=== PATIENT | female | born 1970 | race Caucasian/White ===

== ENCOUNTER 2021-12-23 20:34 | Observation (INO) | payer OTHER ==
[2021-12-23] MEDS ORDERED: Sodium Chloride 0.9% 1000 ML 1,000 ML ONE (20:51)
[2021-12-23] MEDS ORDERED: Adenocard IV 6 MG/2 ML IV ONE ×4 (20:51→21:05)
[2021-12-23] MEDS ORDERED: Zofran 4 MG/2 ML VIAL ONE (20:51)
[2021-12-23] MEDS ORDERED: CARDIZEM DRIP 100 MG/100 ML D5W 100 ML IV ONE (21:02)
[2021-12-23] MEDS ORDERED: BABY ASPIRIN 81 MG CHEW PO ONE (21:03)
[2021-12-23] MEDS ORDERED: Cardizem IV 50 MG/10 ML IV ONE ×2 (21:03→21:04)
[2021-12-23] MEDS ORDERED: CARDIZEM DRIP 100 MG/100 ML D5W 100 ML IV PRN (21:04)
--- NOTE | 2021-12-23 21:09 | ERPHSYRPT ---
- History of Present Illness Time Seen by Provider: 12/23/21 20:53 Historian: patient Exam Limitations: no limitations Patient Subjective Stated Complaint: pt to ER today with complaints of chest pain and palpitations. pt states " i think my heart is in afibb." Triage Nursing Assessment: pt to ER with complaints of chest pain, palpitations x 3 days. pt states she has hx of afib. pt states she seen her fmd and was put on zithromax and this started right after that. pt states she feels lightheaded. pt has been sob and weak. pt states she had a cardioversion done 2 years ago. Physician History: 51 years old female with history of atrial fibrillation on Eliquis, hypertension, chronic back pain, tobacco abuse, COPD presented in the ER with chief complaint of off-and-on palpitation and chest discomfort for last 3 days. Patient reports she noticed this afternoon worsening of palpitations and prior to arrival started to have sweating with generalized weakness fatigue and tiredness. Complaining of dull aching central chest discomfort with racing of heart and mild increased shortness of breath than usual. Patient does have shortness of breath at her baseline. No fever or chills reported. Patient reports symptoms started after she was prescribed Zithromax for bronchitis. Timing/Duration: day(s) (3), intermittent, gradual onset, worse Activities at Onset: activity Quality: aching Location: central Chest Pain Radiation: no radiation Severity of Pain-Max: moderate Severity of Pain-Current: mild Modifying Factors: Worsens With: exertion Associated Symptoms: palpitations, shortness of breath, fatigue, dizziness Nitro Today/Relief: no nitro taken today Aspirin Treatment Today: no aspirin today Allergies/Adverse Reactions: morphine Allergy (Verified 12/23/21 23:31) Home Medications: Albuterol Sulfate [Proair Respiclick] 90 mcg IH DAILY 12/23/21 [History] Apixaban [Eliquis 5 mg Tablet] 5 mg PO BID 12/23/21 [History] Atorvastatin Calcium 40 mg PO QHS 12/23/21 [History] Buprenorphine HCl/Naloxone HCl [Suboxone 8 mg-2 mg Sl Film] 1 tablet PO BID 12/23/21 [History] Clopidogrel Bisulfate [Clopidogrel] 75 mg PO DAILY 12/23/21 [History] Doxycycline Hyclate 100 mg PO BID 12/23/21 [History] Gabapentin 100 mg PO TID 12/23/21 [History] Losartan Potassium [Cozaar] 25 mg PO DAILY 12/23/21 [History] Metoprolol Tartrate 50 mg [Lopressor 50 MG] 50 mg PO BID 12/23/21 [History] Pregabalin [Lyrica 100Mg] 100 mg PO BID 12/23/21 [History] Progesterone, Micronized [Progesterone] 100 mg PO QHS 12/23/21 [History] Quetiapine Fumarate [Seroquel] 25 mg PO QHS 12/24/21 [History] Trazodone HCl 50 mg [Desyrel 50 mg] 50 mg PO QHS 12/24/21 [History] Hx Tetanus, Diphtheria Vaccination/Date Given: Yes Hx Influenza Vaccination/Date Given: No Hx Pneumococcal Vaccination/Date Given: No Immunizations Up to Date: Yes Travel Risk - International Travel Have you traveled outside of the country in past 3 weeks: No - Coronavirus Screening Are you exhibiting any of the following symptoms?: No Close contact with a COVID-19 positive Pt in past 14-21 Days: No - Vaccine Status Have you recieved a Covid-19 vaccination: Yes 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 - Vaccination Dates Date of 2cond Vaccination (if applicable): unk Dates if Unknown: unk - Review of Systems Constitutional: Fatigue Eyes: No Symptoms Ears, Nose, & Throat: No Symptoms Respiratory: Dyspnea, Wheezing Cardiac: Chest Pain, Palpitations Abdominal/Gastrointestinal: No Symptoms Genitourinary Symptoms: No Symptoms Musculoskeletal: No Symptoms Skin: No Symptoms Neurological: No Symptoms Psychological: No Symptoms Endocrine: No Symptoms Hematologic/Lymphatic: No Symptoms Immunological/Allergic: No Symptoms - Past Medical History Pertinent Past Medical History: Yes Neurological History: No Pertinent History ENT History: No Pertinent History Cardiac History: Congestive Heart Failure, High Cholesterol, Hypertension Respiratory History: Bronchitis, COPD Endocrine Medical History: No Pertinent History Musculoskeletal History: No Pertinent History GI Medical History: Other History: No Pertinent History Psycho-Social History: No Pertinent History Female Reproductive Disorders: No Pertinent History Other Medical History: celiac disease - Past Surgical History Past Surgical History: Yes Neuro Surgical History: No Pertinent History Cardiac: Cardiac Catheterization, Vascular Surgery Respiratory: No Pertinent History Gastrointestinal: Cholecystectomy Genitourinary: No Pertinent History Musculoskeletal: No Pertinent History Female Surgical History: No Pertinent History - Social History Smoking Status: Current every day smoker How long have you smoked: 35 Exposure to second hand smoke: Yes Drug Use: none - Nursing Vital Signs Nursing Vital Signs: Initial Vital Signs Temperature 98.2 F 12/23/21 20:38 Pulse Rate 188 H 12/23/21 20:38 Respiratory Rate 22 12/23/21 20:38 O2 Sat by Pulse Oximetry 94 L 12/23/21 20:38 Pain Scale Pain Intensity 0 - Physical Exam General Appearance: no apparent distress, alert Eye Exam: PERRL/EOMI Ears, Nose, Throat Exam: normal ENT inspection, TMs normal, pharynx normal, moist mucous membranes Neck Exam: normal inspection, non-tender, supple, full range of motion Respiratory Exam: normal breath sounds, lungs clear Cardiovascular Exam: normal heart sounds, tachycardia Gastrointestinal/Abdomen Exam: soft, normal bowel sounds, No tenderness Back Exam: normal inspection, normal range of motion Extremity Exam: normal inspection, normal range of motion, pelvis stable Neurologic Exam: alert, oriented x 3, cooperative, address change clerk II-XII nml as tested Skin Exam: normal color SpO2 Interpretation: normal SpO2: 94 O2 Delivery: Room Air Ordered Tests: Active Orders 24 hr Category Date Time Status Bedrest ROUTINE Activity 12/23/21 23:26 Active Up With Assistance ROUTINE Activity 12/23/21 23:26 Active [employer] Worker STAT Care 12/23/21 21:03 Completed Code Status Order ROUTINE Care 12/23/21 23:26 Active EKG-ER Only STAT Care 12/23/21 21:03 Completed Fall Protocol Q1H Care 12/23/21 23:26 Active IV Care Q6H Care 12/23/21 23:26 Active IV Insertion STAT Care 12/23/21 21:03 Completed Oxygen-ED Only Nasal Cannula 2 lpm Care 12/23/21 21:[address] in Observation ROUTINE Care 12/23/21 23:26 Active Mimi Escobedo ROUTINE Care 12/23/21 23:26 Active Weight,Daily 0600 Care 12/23/21 23:26 Active Heart-Healthy Diet Diet 12/23/21 Breakfast Active CHEST 1 VIEW (PORTABLE) Stat Exams 12/23/21 21:03 Taken CBC W DIFF AM.LAB Lab 12/24/21 04:00 Ordered CBC W DIFF Stat Lab 12/23/21 21:22 Completed CMP AM.LAB Lab 12/24/21 04:00 Ordered CMP Stat Lab 12/23/21 21:22 Completed MAG [MAGNESIUM] Stat Lab 12/23/21 22:00 Completed NT PRO BNP Stat Lab 12/23/21 21:22 Completed TROPONIN Q4H Lab 12/23/21 21:22 Completed Urine Triage Profile Stat Lab 12/23/21 21:03 Ordered Transfer Order Routine Transfer 12/23/21 Completed Medication Summary Generic Name Dose Route Start Last Admin Trade Name Alycia PRN Reason Stop Dose Admin Acetaminophen 650 mg 12/23/21 23:26 Acetaminophen 325 Mg Tablet PO 01/22/22 23:25 Q4H PRN PRN PAIN AND/OR FEVER Albuterol/Ipratropium 3 ml 12/24/21 01:00 Ipratropium/Albuterol Sulfate 3 Ml Ampul.Neb IH 01/23/22 00:59 Q6HRT [place] Ondansetron HCl 4 mg 12/23/21 23:26 Ondansetron Hcl 4 Mg/2 Ml Vial IV 01/22/22 23:25 Q6H PRN PRN NAUSEA/VOMITING Pantoprazole Sodium 40 mg 12/24/21 10:00 Pantoprazole 40 Mg Vial IV 01/23/22 09:59 Q24H10 [place] Discontinued Medications Generic Name Dose Route Start Last Admin Trade Name Alycia PRN Reason Stop Dose Admin Adenosine Confirm 12/23/21 20:51 Adenosine 6 Mg/2 Ml Vial Administered 12/23/21 20:52 Dose 6 mg IV .STK-MED ONE Adenosine Confirm 12/23/21 20:59 Adenosine 6 Mg/2 Ml Vial Administered 12/23/21 21:00 Dose 12 mg IV .STK-MED ONE Adenosine 6 mg 12/23/21 21:05 12/23/21 20:58 Adenosine 6 Mg/2 Ml Vial IV 12/23/21 21:06 6 mg STAT ONE Administration Adenosine 12 mg 12/23/21 21:05 12/23/21 21:01 Adenosine 6 Mg/2 Ml Vial IV 12/23/21 21:06 12 mg STAT ONE Administration Aspirin 324 mg 12/23/21 21:03 12/23/21 21:19 Aspirin 81 Mg Tab.Chew PO 12/23/21 21:04 324 mg STAT ONE Administration Diltiazem HCl Confirm 12/23/21 21:03 Diltiazem Hcl Iv 5 Mg/Ml Vial Administered 12/23/21 21:04 Dose 50 mg IV .STK-MED ONE Diltiazem HCl 20 mg 12/23/21 21:04 12/23/21 21:09 Diltiazem Hcl Iv 5 Mg/Ml Vial IV 12/23/21 21:05 20 mg STAT ONE Administration Sodium Chloride Confirm 12/23/21 20:51 Sodium Chloride 0.9% 1000 Ml Administered 12/23/21 20:52 Dose 1,000 mls @ ud .ROUTE .STK-MED ONE Diltiazem HCl Confirm 12/23/21 21:02 Cardizem Drip 100 Mg/100 Ml D5w Administered 12/23/21 21:03 Dose 100 mls @ ud IV .STK-MED ONE Diltiazem HCl 100 mls @ 5 mls/hr 12/23/21 21:04 12/23/21 21:09 Cardizem Drip 100 Mg/100 Ml D5w IV 01/22/22 21:03 5 mg/hr .Q20H PRN 5 mls/hr HEART RATE/ A-FIB Administration Protocol 5 MG/HR Ondansetron HCl Confirm 12/23/21 20:51 Ondansetron Hcl 4 Mg/2 Ml Vial Administered 12/23/21 20:52 Dose 4 mg .ROUTE .STK-MED ONE Ondansetron HCl 4 mg 12/23/21 21:27 12/23/21 20:55 Ondansetron Hcl 4 Mg/2 Ml Vial IV 12/23/21 21:28 4 mg STAT ONE Administration Lab/Rad Data: Laboratory Result Diagrams 12/23/21 21:22 12/23/21 21:22 Laboratory Results 12/23/21 12/23/21 12/23/21 Range/Units 22:12 22:00 21:22 WBC (4.0-10.5) x10^3/uL RBC (4.1-5.4) x10^6/uL Hgb (12.0-16.0) g/dL Hct (35-47) % MCV (78-100) fL MCH (26-32) pg MCHC (32-36) g/dL RDW (11.5-14.0) % Plt Count (150-450) x10^3/uL MPV (7.5-11.0) fL Gran % (36.0-66.0) % Immature Gran % (Auto) (0.00-0.4) % Nucleat RBC Rel Count (0.00-0.1) % Eos # (Auto) (0-0.5) x10^3/uL Immature Gran # (Auto) (0.00-0.03) x10^3u/L Absolute Lymphs (auto) (1.0-4.6) x10^3/uL Absolute Monos (auto) (0.0-1.3) x10^3/uL Absolute Nucleated RBC (0.00-0.01) x10^3u/L Lymphocytes % (24.0-44.0) % Monocytes % (0.0-12.0) % Eosinophils % (0.00-5.0) % Basophils % (0.0-0.4) % Absolute Granulocytes (1.4-6.9) x10^3/uL Basophils # (0-0.4) x10^3/uL Sodium (137-145) mmol/L Potassium (3.5-5.1) mmol/L Chloride (98-107) mmol/L Carbon Dioxide (22-30) mmol/L Anion Gap (5-15) MEQ/L BUN (7-17) mg/dL Creatinine (0.52-1.04) mg/dL Estimated GFR ML/MIN Glucose (74-106) mg/dL Calcium (8.4-10.2) mg/dL Magnesium 1.7 (1.6-2.3) mg/dL Total Bilirubin (0.2-1.3) mg/dL AST (14-36) U/L ALT (0-35) U/L Alkaline Phosphatase (38-126) U/L Troponin I < 0.012 (0.000-0.034) ng/mL NT-Pro-B Natriuret Pep (0-900) pg/mL Serum Total Protein (6.3-8.2) g/dL Albumin (3.5-5.0) g/dL Influenza Type A Ag NEGATIVE (NEGATIVE) Influenza Type B Ag NEGATIVE (NEGATIVE) RSV (PCR) NEGATIVE (Negative) SARS-CoV-2 (PCR) NEGATIVE (NEGATIVE) 12/23/21 12/23/21 Range/Units 21:22 21:22 WBC 6.5 (4.0-10.5) x10^3/uL RBC 5.47 H (4.1-5.4) x10^6/uL Hgb 15.6 (12.0-16.0) g/dL Hct 49.8 H (35-47) % MCV 91.0 (78-100) fL MCH 28.5 (26-32) pg MCHC 31.3 L (32-36) g/dL RDW 15.0 H (11.5-14.0) % Plt Count 191 (150-450) x10^3/uL MPV 10.6 (7.5-11.0) fL Gran % 55.7 (36.0-66.0) % Immature Gran % (Auto) 0.2 (0.00-0.4) % Nucleat RBC Rel Count 0.0 (0.00-0.1) % Eos # (Auto) 0.11 (0-0.5) x10^3/uL Immature Gran # (Auto) 0.01 (0.00-0.03) x10^3u/L Absolute Lymphs (auto) 2.20 (1.0-4.6) x10^3/uL Absolute Monos (auto) 0.51 (0.0-1.3) x10^3/uL Absolute Nucleated RBC 0.00 (0.00-0.01) x10^3u/L Lymphocytes % 33.9 (24.0-44.0) % Monocytes % 7.9 (0.0-12.0) % Eosinophils % 1.7 (0.00-5.0) % Basophils % 0.6 (0.0-0.4) % Absolute Granulocytes 3.62 (1.4-6.9) x10^3/uL Basophils # 0.04 (0-0.4) x10^3/uL Sodium 139 (137-145) mmol/L Potassium 3.7 (3.5-5.1) mmol/L Chloride 106 (98-107) mmol/L Carbon Dioxide 26 (22-30) mmol/L Anion Gap 11.6 (5-15) MEQ/L BUN 16 (7-17) mg/dL Creatinine 1.00 (0.52-1.04) mg/dL Estimated GFR > 60.0 ML/MIN Glucose 142 H (74-106) mg/dL Calcium 8.9 (8.4-10.2) mg/dL Magnesium (1.6-2.3) mg/dL Total Bilirubin 0.60 (0.2-1.3) mg/dL AST 77 H (14-36) U/L ALT 39 H (0-35) U/L Alkaline Phosphatase 119 (38-126) U/L Troponin I (0.000-0.034) ng/mL NT-Pro-B Natriuret Pep 2570 H (0-900) pg/mL Serum Total Protein 7.9 (6.3-8.2) g/dL Albumin 3.7 (3.5-5.0) g/dL Influenza Type A Ag (NEGATIVE) Influenza Type B Ag (NEGATIVE) RSV (PCR) (Negative) SARS-CoV-2 (PCR) (NEGATIVE) - Progress Progress: improved Air Movement: fair, good Progress Note: 12/23/21 22:17 31-year-old is evaluated for palpitations. Patient was in SVT. She is given adenosine 6 followed by 12 with no change in rate and rhythm at all. Started on Cardizem. After giving bolus of Cardizem she converted to normal sinus rhythm. Chest x-ray no acute cardiopulmonary findings reviewed by me, official report is pending. Negative initial troponins. Discussed with Dr. Covarrubias and patient is being admitted for observation. Blood Culture(s) Obtained: No Antibiotics given: No Discussed with : Kortney Counseled pt/family regarding: lab results, diagnosis, need for follow-up, rad results, smoking cessation - Departure Departure Disposition: Observation Clinical Impression: Paroxysmal SVT (supraventricular tachycardia) Condition: Stable Critical Care Time: Yes Critical Care Time(excluding separately billable procedures): Critical 30-74 mins
[2021-12-23 21:24] LABS: Absolute Neutrophil Ct (ANC) 3.62 x10^3/uL (1.4-6.9); Basophil (Absolute #) 0.04 x10^3/uL (0-0.4); Eosinophil % 1.7 % (0.00-5.0); Eosinophil (Absolute #) 0.11 x10^3/uL (0-0.5); Hematocrit 49.8 % (35-47); Hemoglobin 15.6 g/dL (12.0-16.0); Lymphocytes % 33.9 % (24.0-44.0); Mean Corpuscular Hemoglobin 28.5 pg (26-32); Mean Corpuscular Hgb Concent. 31.3 g/dL (32-36); Mean Platelet Volume 10.6 fL (7.5-11.0); Monocyte (Absolute #) 0.51 x10^3/uL (0.0-1.3); Monocytes % 7.9 % (0.0-12.0); Neutrophil % 55.7 % (36.0-66.0); Platelet Count 191 x10^3/uL (150-450); Red Blood Count 5.47 x10^6/uL (4.1-5.4); White Blood Count 6.5 x10^3/uL (4.0-10.5)
[2021-12-23] MEDS ORDERED: Zofran 4 MG/2 ML VIAL IV ONE (21:27)
[2021-12-23 21:45] LABS: ALBUMIN 3.7 g/dL (3.5-5.0); ALKALINE PHOSPHATASE 119 U/L (38-126); ANION GAP 11.6 MEQ/L (5-15); BLOOD UREA NITROGEN 16 mg/dL (7-17); CHLORIDE 106 mmol/L (98-107); Calcium 8.9 mg/dL (8.4-10.2); Carbon Dioxide 26 mmol/L (22-30); EST GLOMERULAR FILTRATION RATE > 60.0 ML/MIN; Glucose 142 mg/dL (74-106); NT PRO BNP 2570 pg/mL (0-900); Potassium 3.7 mmol/L (3.5-5.1); SGOT/AST 77 U/L (14-36); SGPT/ALT 39 U/L (0-35); SODIUM 139 mmol/L (137-145); Total Protein 7.9 g/dL (6.3-8.2)
[2021-12-23 22:52] LABS: INFLUENZA A NEGATIVE (NEGATIVE); INFLUENZA B NEGATIVE (NEGATIVE); RESPIRATORY SYNCTIAL VIRUS NEGATIVE (Negative); SARS-CoV-2 Xpert Express NEGATIVE (NEGATIVE)
[2021-12-23] MEDS ORDERED: Zofran 4 MG/2 ML VIAL IV PRN (23:26)
[2021-12-23] MEDS ORDERED: TYLENOL 325 MG PO PRN (23:26)
[2021-12-24] MEDS ORDERED: ZOCOR 20MG PO SCH (00:17)
[2021-12-24] MEDS ORDERED: DESYREL 50 MG PO SCH (00:21)
[2021-12-24] MEDS ORDERED: Seroquel 25 MG PO SCH (00:21)
[2021-12-24] MEDS: VENTOLIN COMMON CANISTER IH SCH ×3 (00:25→12:45)
[2021-12-24] MEDS ORDERED: Nicoderm CQ 21 MG TOP SCH (00:30)
[2021-12-24] MEDS: ELIQUIS 2.5 MG TABLET PO SCH ×2 (00:49→09:22)
[2021-12-24] MEDS: Neurontin PO SCH ×2 (00:50→09:22)
[2021-12-24] MEDS: Lopressor 50 MG PO SCH ×2 (00:50→09:22)
[2021-12-24] MEDS: LYRICA 100MG PO SCH ×2 (00:50→09:22)
[2021-12-24] MEDS: Vibramycin 100 MG PO SCH ×2 (00:50→09:21)
[2021-12-24] MEDS ORDERED: DUONEB 0.5-3 MG/3 ml Neb IH SCH (01:00)
[2021-12-24 02:00] LABS: Amphetamine,Urine NEGATIVE (NEGATIVE); Barbiturate,Urine NEGATIVE (NEGATIVE); Benzodiazepine,Urine NEGATIVE (NEGATIVE); Methadone,Urine NEGATIVE (NEGATIVE); Opiate,Urine NEGATIVE (NEGATIVE); PCP,Urine NEGATIVE (NEGATIVE); THC,Urine NEGATIVE (NEGATIVE)
[2021-12-24 04:56] LABS: Absolute Neutrophil Ct (ANC) 3.94 x10^3/uL (1.4-6.9); Basophil (Absolute #) 0.03 x10^3/uL (0-0.4); Eosinophil % 1.5 % (0.00-5.0); Eosinophil (Absolute #) 0.09 x10^3/uL (0-0.5); Hematocrit 41.8 % (35-47); Hemoglobin 13.2 g/dL (12.0-16.0); Lymphocyte (Absolute #) 1.42 x10^3/uL (1.0-4.6); Lymphocytes % 24.2 % (24.0-44.0); Mean Cell Volume 89.5 fL (78-100); Mean Corpuscular Hemoglobin 28.3 pg (26-32); Mean Corpuscular Hgb Concent. 31.6 g/dL (32-36); Mean Platelet Volume 10.9 fL (7.5-11.0); Monocyte (Absolute #) 0.38 x10^3/uL (0.0-1.3); Monocytes % 6.5 % (0.0-12.0); Neutrophil % 67.1 % (36.0-66.0); Platelet Count 140 x10^3/uL (150-450); Red Blood Count 4.67 x10^6/uL (4.1-5.4); Red Cell Distribution Width 15.4 % (11.5-14.0); White Blood Count 5.9 x10^3/uL (4.0-10.5)
[2021-12-24 05:30] LABS: ALBUMIN 2.9 g/dL (3.5-5.0); ALKALINE PHOSPHATASE 91 U/L (38-126); ANION GAP 9.3 MEQ/L (5-15); BLOOD UREA NITROGEN 17 mg/dL (7-17); CHLORIDE 108 mmol/L (98-107); Calcium 8.2 mg/dL (8.4-10.2); Carbon Dioxide 23 mmol/L (22-30); Creatinine 1 0.76 mg/dL (0.52-1.04); EST GLOMERULAR FILTRATION RATE > 60.0 ML/MIN; Glucose 94 mg/dL (74-106); Potassium 4.2 mmol/L (3.5-5.1); SGOT/AST 53 U/L (14-36); SGPT/ALT 41 U/L (0-35); SODIUM 136 mmol/L (137-145); Total Protein 6.4 g/dL (6.3-8.2)
[2021-12-24 07:00] LABS: Slide Review 1 YES
[2021-12-24] MEDS ORDERED: MEDICATION INTERVENTION MC SCH ×2 (07:00)
--- NOTE | 2021-12-24 08:39 | XRAY ---
Indication: Palpitations. Comparison: December 18, 2021 Portable apical lordotic chest remains hyperinflated and clear. Heart not enlarged for apical lordotic projection. No new/acute findings.
[2021-12-24] MEDS ORDERED: NON-FORMULARY ITEM (Buprenorphine Hcl/Naloxone Hcl [Suboxone 8 Mg-2 Mg Sl Film] 1 EACH Fil PO SCH (10:00)
[2021-12-24] MEDS ORDERED: PROTONIX 40 MG IV IV SCH (10:00)
[2021-12-24 11:53] VITALS: BP 123/71; O2SAT 92
[2021-12-24 12:51] VITALS: PULSE 63
--- NOTE | 2021-12-24 13:24 | PCM.SSS ---
History of Present Illness - Chief Complaint Chief Complaint: SVT History of Present Illness: is a 51 year old female who presented to ER with chest pain. Medications & Allergies Home Medications: Home Medication List Albuterol Sulfate [Proair Respiclick] 90 mcg IH DAILY 12/23/21 [History Confirmed 12/23/21] Apixaban [Eliquis 5 mg Tablet] 5 mg PO BID 12/23/21 [History Confirmed 12/23/21] Atorvastatin Calcium 40 mg PO QHS 12/23/21 [History Confirmed 12/23/21] Buprenorphine HCl/Naloxone HCl [Suboxone 8 mg-2 mg Sl Film] 1 tablet PO BID 12/23/21 [History Confirmed 12/23/21] Clopidogrel Bisulfate [Clopidogrel] 75 mg PO DAILY 12/23/21 [History Confirmed 12/23/21] Doxycycline Hyclate 100 mg PO BID 12/23/21 [History Confirmed 12/23/21] Gabapentin 100 mg PO TID 12/23/21 [History Confirmed 12/23/21] Losartan Potassium [Cozaar] 25 mg PO DAILY 12/23/21 [History Confirmed 12/23/21] Metoprolol Tartrate 50 mg [Lopressor 50 MG] 50 mg PO BID 12/23/21 [History Confirmed 12/23/21] Pregabalin [Lyrica 100Mg] 100 mg PO BID 12/23/21 [History Confirmed 12/23/21] Progesterone, Micronized [Progesterone] 100 mg PO QHS 12/23/21 [History C onfirmed 12/23/21] Quetiapine Fumarate [Seroquel] 25 mg PO QHS 12/24/21 [History Confirmed 12/24/21] Trazodone HCl 50 mg [Desyrel 50 mg] 50 mg PO QHS 12/24/21 [History Confirmed 12/24/21] Allergies/Adverse Reactions: Allergies Allergy/AdvReac Type Severity Reaction Status Date / Time morphine Allergy Verified 12/23/21 23:31 - Past Medical History Past Medical History: Yes Neurological History: No Pertinent History ENT History: No Pertinent History Cardiac History: Congestive Heart Failure, High Cholesterol, Hypertension Respiratory History: Bronchitis, COPD Endocrine Medical History: No Pertinent History Musculoskelatal History: No Pertinent History GI Medical History: Other History: No Pertinent History Pyscho-Social History: No Pertinent History Reproductive Disorders: No Pertinent History Comment: celiac disease - Past Surgical History Past Surgical History: Yes Neuro Surgical History: No Pertinent History Cardiac History: Cardiac Catheterization, Vascular Surgery Respiratory Surgery: No Pertinent History GI Surgical History: Cholecystectomy Genitourinary Surgical Hx: No Pertinent History Musculskeletal Surgical Hx: No Pertinent History Female Surgical History: No Pertinent History Other Surgical History: cardiac ablation - Social History Smoking Status: Current every day smoker How long have you smoked: 35 Exposure to second hand smoke: Yes Alcohol: None Drug Use: none - Physical Exam Vital Signs: Vital Signs - 24 hr Temp Pulse Pulse Resp BP BP Pulse Ox 12/24/21 12:49 63 16 92 L 12/24/21 11:52 98.4 F 60 16 123/71 92 L 12/24/21 08:00 98.9 F 63 13 122/69 93 L 12/24/21 07:07 61 16 93 L 12/24/21 04:00 98.1 F 62 18 115/55 95 12/24/21 00:25 65 18 93 L 12/24/21 00:18 94 L 12/23/21 23:51 97.5 F 66 16 138/77 94 L 12/23/21 23:10 63 21 121/60 96 12/23/21 22:03 69 20 129/76 97 12/23/21 21:36 66 16 125/77 97 12/23/21 21:09 170 H 27 H 172/119 12/23/21 20:38 98.2 F 188 H 180 H 22 94 L Results - Labs Lab/Micro Results: Lab Results-Last 24 Hours 12/23/21 12/23/21 12/23/21 Range/Units 21:03 21:22 21:22 WBC 6.5 (4.0-10.5) x10^3/uL RBC 5.47 H (4.1-5.4) x10^6/uL Hgb 15.6 (12.0-16.0) g/dL Hct 49.8 H (35-47) % MCV 91.0 (78-100) fL MCH 28.5 (26-32) pg MCHC 31.3 L (32-36) g/dL RDW 15.0 H (11.5-14.0) % Plt Count 191 (150-450) x10^3/uL MPV 10.6 (7.5-11.0) fL Gran % 55.7 (36.0-66.0) % Immature Gran % (Auto) 0.2 (0.00-0.4) % Nucleat RBC Rel Count 0.0 (0.00-0.1) % Eos # (Auto) 0.11 (0-0.5) x10^3/uL Immature Gran # (Auto) 0.01 (0.00-0.03) x10^3u/L Absolute Lymphs (auto) 2.20 (1.0-4.6) x10^3/uL Absolute Monos (auto) 0.51 (0.0-1.3) x10^3/uL Absolute Nucleated RBC 0.00 (0.00-0.01) x10^3u/L Lymphocytes % 33.9 (24.0-44.0) % Monocytes % 7.9 (0.0-12.0) % Eosinophils % 1.7 (0.00-5.0) % Basophils % 0.6 (0.0-0.4) % Absolute Granulocytes 3.62 (1.4-6.9) x10^3/uL Basophils # 0.04 (0-0.4) x10^3/uL Sodium 139 (137-145) mmol/L Potassium 3.7 (3.5-5.1) mmol/L Chloride 106 (98-107) mmol/L Carbon Dioxide 26 (22-30) mmol/L Anion Gap 11.6 (5-15) MEQ/L BUN 16 (7-17) mg/dL Creatinine 1.00 (0.52-1.04) mg/dL Estimated GFR > 60.0 ML/MIN Glucose 142 H (74-106) mg/dL Calcium 8.9 (8.4-10.2) mg/dL Magnesium (1.6-2.3) mg/dL Total Bilirubin 0.60 (0.2-1.3) mg/dL AST 77 H (14-36) U/L ALT 39 H (0-35) U/L Alkaline Phosphatase 119 (38-126) U/L Troponin I (0.000-0.034) ng/mL NT-Pro-B Natriuret Pep 2570 H (0-900) pg/mL Serum Total Protein 7.9 (6.3-8.2) g/dL Albumin 3.7 (3.5-5.0) g/dL Urine Opiates Level NEGATIVE (NEGATIVE) Ur Methadone NEGATIVE (NEGATIVE) Urine Barbiturates NEGATIVE (NEGATIVE) Ur Phencyclidine (PCP) NEGATIVE (NEGATIVE) Urine Amphetamine NEGATIVE (NEGATIVE) U Benzodiazepine Level NEGATIVE (NEGATIVE) Urine Marijuana (THC) NEGATIVE (NEGATIVE) Influenza Type A Ag (NEGATIVE) Influenza Type B Ag (NEGATIVE) RSV (PCR) (Negative) SARS-CoV-2 (PCR) (NEGATIVE) Slides for Path Review 12/23/21 12/23/21 12/23/21 Range/Units 21:22 22:00 22:12 WBC (4.0-10.5) x10^3/uL RBC (4.1-5.4) x10^6/uL Hgb (12.0-16.0) g/dL Hct (35-47) % MCV (78-100) fL MCH (26-32) pg MCHC (32-36) g/dL RDW (11.5-14.0) % Plt Count (150-450) x10^3/uL MPV (7.5-11.0) fL Gran % (36.0-66.0) % Immature Gran % (Auto) (0.00-0.4) % Nucleat RBC Rel Count (0.00-0.1) % Eos # (Auto) (0-0.5) x10^3/uL Immature Gran # (Auto) (0.00-0.03) x10^3u/L Absolute Lymphs (auto) (1.0-4.6) x10^3/uL Absolute Monos (auto) (0.0-1.3) x10^3/uL Absolute Nucleated RBC (0.00-0.01) x10^3u/L Lymphocytes % (24.0-44.0) % Monocytes % (0.0-12.0) % Eosinophils % (0.00-5.0) % Basophils % (0.0-0.4) % Absolute Granulocytes (1.4-6.9) x10^3/uL Basophils # (0-0.4) x10^3/uL Sodium (137-145) mmol/L Potassium (3.5-5.1) mmol/L Chloride (98-107) mmol/L Carbon Dioxide (22-30) mmol/L Anion Gap (5-15) MEQ/L BUN (7-17) mg/dL Creatinine (0.52-1.04) mg/dL Estimated GFR ML/MIN Glucose (74-106) mg/dL Calcium (8.4-10.2) mg/dL Magnesium 1.7 (1.6-2.3) mg/dL Total Bilirubin (0.2-1.3) mg/dL AST (14-36) U/L ALT (0-35) U/L Alkaline Phosphatase (38-126) U/L Troponin I < 0.012 (0.000-0.034) ng/mL NT-Pro-B Natriuret Pep (0-900) pg/mL Serum Total Protein (6.3-8.2) g/dL Albumin (3.5-5.0) g/dL Urine Opiates Level (NEGATIVE) Ur Methadone (NEGATIVE) Urine Barbiturates (NEGATIVE) Ur Phencyclidine (PCP) (NEGATIVE) Urine Amphetamine (NEGATIVE) U Benzodiazepine Level (NEGATIVE) Urine Marijuana (THC) (NEGATIVE) Influenza Type A Ag NEGATIVE (NEGATIVE) Influenza Type B Ag NEGATIVE (NEGATIVE) RSV (PCR) NEGATIVE (Negative) SARS-CoV-2 (PCR) NEGATIVE (NEGATIVE) Slides for Path Review 12/24/21 12/24/21 Range/Units 04:20 04:20 WBC 5.9 (4.0-10.5) x10^3/uL RBC 4.67 (4.1-5.4) x10^6/uL Hgb 13.2 (12.0-16.0) g/dL Hct 41.8 (35-47) % MCV 89.5 (78-100) fL MCH 28.3 (26-32) pg MCHC 31.6 L (32-36) g/dL RDW 15.4 H (11.5-14.0) % Plt Count 140 L (150-450) x10^3/uL MPV 10.9 (7.5-11.0) fL Gran % 67.1 H (36.0-66.0) % Immature Gran % (Auto) 0.2 (0.00-0.4) % Nucleat RBC Rel Count 0.0 (0.00-0.1) % Eos # (Auto) 0.09 (0-0.5) x10^3/uL Immature Gran # (Auto) 0.01 (0.00-0.03) x10^3u/L Absolute Lymphs (auto) 1.42 (1.0-4.6) x10^3/uL Absolute Monos (auto) 0.38 (0.0-1.3) x10^3/uL Absolute Nucleated RBC 0.00 (0.00-0.01) x10^3u/L Lymphocytes % 24.2 (24.0-44.0) % Monocytes % 6.5 (0.0-12.0) % Eosinophils % 1.5 (0.00-5.0) % Basophils % 0.5 (0.0-0.4) % Absolute Granulocytes 3.94 (1.4-6.9) x10^3/uL Basophils # 0.03 (0-0.4) x10^3/uL Sodium 136 L (137-145) mmol/L Potassium 4.2 (3.5-5.1) mmol/L Chloride 108 H (98-107) mmol/L Carbon Dioxide 23 (22-30) mmol/L Anion Gap 9.3 (5-15) MEQ/L BUN 17 (7-17) mg/dL Creatinine 0.76 (0.52-1.04) mg/dL Estimated GFR > 60.0 ML/MIN Glucose 94 (74-106) mg/dL Calcium 8.2 L (8.4-10.2) mg/dL Magnesium (1.6-2.3) mg/dL Total Bilirubin 0.60 (0.2-1.3) mg/dL AST 53 H (14-36) U/L ALT 41 H (0-35) U/L Alkaline Phosphatase 91 (38-126) U/L Troponin I (0.000-0.034) ng/mL NT-Pro-B Natriuret Pep (0-900) pg/mL Serum Total Protein 6.4 (6.3-8.2) g/dL Albumin 2.9 L (3.5-5.0) g/dL Urine Opiates Level (NEGATIVE) Ur Methadone (NEGATIVE) Urine Barbiturates (NEGATIVE) Ur Phencyclidine (PCP) (NEGATIVE) Urine Amphetamine (NEGATIVE) U Benzodiazepine Level (NEGATIVE) Urine Marijuana (THC) (NEGATIVE) Influenza Type A Ag (NEGATIVE) Influenza Type B Ag (NEGATIVE) RSV (PCR) (Negative) SARS-CoV-2 (PCR) (NEGATIVE) Slides for Path Review YES - Radiology Impressions Radiology Exams & Impressions: Radiology Procedures Category Date Time Status CHEST 1 VIEW (PORTABLE) Stat Exams 12/23/21 21:03 Completed ECHO W/2D AND DOPPLER [US] Routine Exams 12/24/21 Ordered - Other Procedures and Tests Respiratory Therapy 12/24/21 01:11 Respiratory Therapy Assessment DAILY Hospital Summary - Vitals & Intake/Output Vital Signs: Vital Signs Temperature 98.4 F 12/24/21 11:52 Pulse Rate 63 12/24/21 12:49 Respiratory Rate 16 12/24/21 12:49 Blood Pressure 123/71 12/24/21 11:52 O2 Sat by Pulse Oximetry 92 L 12/24/21 12:49 Intake & Output: Intake & Output 12/22/21 12/23/21 12/24/21 12/25/21 11:59 11:59 11:59 11:59 Intake Total 440 560 Balance 440 560 Weight 88 kg - Lab Result Diagrams: 12/24/21 04:20 12/24/21 04:20 Lab Results-Last 24 Hrs: Lab Results-Last 24 Hours 12/23/21 12/23/21 12/23/21 Range/Units 21:03 21:22 21:22 WBC 6.5 (4.0-10.5) x10^3/uL RBC 5.47 H (4.1-5.4) x10^6/uL Hgb 15.6 (12.0-16.0) g/dL Hct 49.8 H (35-47) % MCV 91.0 (78-100) fL MCH 28.5 (26-32) pg MCHC 31.3 L (32-36) g/dL RDW 15.0 H (11.5-14.0) % Plt Count 191 (150-450) x10^3/uL MPV 10.6 (7.5-11.0) fL Gran % 55.7 (36.0-66.0) % Immature Gran % (Auto) 0.2 (0.00-0.4) % Nucleat RBC Rel Count 0.0 (0.00-0.1) % Eos # (Auto) 0.11 (0-0.5) x10^3/uL Immature Gran # (Auto) 0.01 (0.00-0.03) x10^3u/L Absolute Lymphs (auto) 2.20 (1.0-4.6) x10^3/uL Absolute Monos (auto) 0.51 (0.0-1.3) x10^3/uL Absolute Nucleated RBC 0.00 (0.00-0.01) x10^3u/L Lymphocytes % 33.9 (24.0-44.0) % Monocytes % 7.9 (0.0-12.0) % Eosinophils % 1.7 (0.00-5.0) % Basophils % 0.6 (0.0-0.4) % Absolute Granulocytes 3.62 (1.4-6.9) x10^3/uL Basophils # 0.04 (0-0.4) x10^3/uL Sodium 139 (137-145) mmol/L Potassium 3.7 (3.5-5.1) mmol/L Chloride 106 (98-107) mmol/L Carbon Dioxide 26 (22-30) mmol/L Anion Gap 11.6 (5-15) MEQ/L BUN 16 (7-17) mg/dL Creatinine 1.00 (0.52-1.04) mg/dL Estimated GFR > 60.0 ML/MIN Glucose 142 H (74-106) mg/dL Calcium 8.9 (8.4-10.2) mg/dL Magnesium (1.6-2.3) mg/dL Total Bilirubin 0.60 (0.2-1.3) mg/dL AST 77 H (14-36) U/L ALT 39 H (0-35) U/L Alkaline Phosphatase 119 (38-126) U/L Troponin I (0.000-0.034) ng/mL NT-Pro-B Natriuret Pep 2570 H (0-900) pg/mL Serum Total Protein 7.9 (6.3-8.2) g/dL Albumin 3.7 (3.5-5.0) g/dL Urine Opiates Level NEGATIVE (NEGATIVE) Ur Methadone NEGATIVE (NEGATIVE) Urine Barbiturates NEGATIVE (NEGATIVE) Ur Phencyclidine (PCP) NEGATIVE (NEGATIVE) Urine Amphetamine NEGATIVE (NEGATIVE) U Benzodiazepine Level NEGATIVE (NEGATIVE) Urine Marijuana (THC) NEGATIVE (NEGATIVE) Influenza Type A Ag (NEGATIVE) Influenza Type B Ag (NEGATIVE) RSV (PCR) (Negative) SARS-CoV-2 (PCR) (NEGATIVE) Slides for Path Review 12/23/21 12/23/21 12/23/21 Range/Units 21:22 22:00 22:12 WBC (4.0-10.5) x10^3/uL RBC (4.1-5.4) x10^6/uL Hgb (12.0-16.0) g/dL Hct (35-47) % MCV (78-100) fL MCH (26-32) pg MCHC (32-36) g/dL RDW (11.5-14.0) % Plt Count (150-450) x10^3/uL MPV (7.5-11.0) fL Gran % (36.0-66.0) % Immature Gran % (Auto) (0.00-0.4) % Nucleat RBC Rel Count (0.00-0.1) % Eos # (Auto) (0-0.5) x10^3/uL Immature Gran # (Auto) (0.00-0.03) x10^3u/L Absolute Lymphs (auto) (1.0-4.6) x10^3/uL Absolute Monos (auto) (0.0-1.3) x10^3/uL Absolute Nucleated RBC (0.00-0.01) x10^3u/L Lymphocytes % (24.0-44.0) % Monocytes % (0.0-12.0) % Eosinophils % (0.00-5.0) % Basophils % (0.0-0.4) % Absolute Granulocytes (1.4-6.9) x10^3/uL Basophils # (0-0.4) x10^3/uL Sodium (137-145) mmol/L Potassium (3.5-5.1) mmol/L Chloride (98-107) mmol/L Carbon Dioxide (22-30) mmol/L Anion Gap (5-15) MEQ/L BUN (7-17) mg/dL Creatinine (0.52-1.04) mg/dL Estimated GFR ML/MIN Glucose (74-106) mg/dL Calcium (8.4-10.2) mg/dL Magnesium 1.7 (1.6-2.3) mg/dL Total Bilirubin (0.2-1.3) mg/dL AST (14-36) U/L ALT (0-35) U/L Alkaline Phosphatase (38-126) U/L Troponin I < 0.012 (0.000-0.034) ng/mL NT-Pro-B Natriuret Pep (0-900) pg/mL Serum Total Protein (6.3-8.2) g/dL Albumin (3.5-5.0) g/dL Urine Opiates Level (NEGATIVE) Ur Methadone (NEGATIVE) Urine Barbiturates (NEGATIVE) Ur Phencyclidine (PCP) (NEGATIVE) Urine Amphetamine (NEGATIVE) U Benzodiazepine Level (NEGATIVE) Urine Marijuana (THC) (NEGATIVE) Influenza Type A Ag NEGATIVE (NEGATIVE) Influenza Type B Ag NEGATIVE (NEGATIVE) RSV (PCR) NEGATIVE (Negative) SARS-CoV-2 (PCR) NEGATIVE (NEGATIVE) Slides for Path Review 12/24/21 12/24/21 Range/Units 04:20 04:20 WBC 5.9 (4.0-10.5) x10^3/uL RBC 4.67 (4.1-5.4) x10^6/uL Hgb 13.2 (12.0-16.0) g/dL Hct 41.8 (35-47) % MCV 89.5 (78-100) fL MCH 28.3 (26-32) pg MCHC 31.6 L (32-36) g/dL RDW 15.4 H (11.5-14.0) % Plt Count 140 L (150-450) x10^3/uL MPV 10.9 (7.5-11.0) fL Gran % 67.1 H (36.0-66.0) % Immature Gran % (Auto) 0.2 (0.00-0.4) % Nucleat RBC Rel Count 0.0 (0.00-0.1) % Eos # (Auto) 0.09 (0-0.5) x10^3/uL Immature Gran # (Auto) 0.01 (0.00-0.03) x10^3u/L Absolute Lymphs (auto) 1.42 (1.0-4.6) x10^3/uL Absolute Monos (auto) 0.38 (0.0-1.3) x10^3/uL Absolute Nucleated RBC 0.00 (0.00-0.01) x10^3u/L Lymphocytes % 24.2 (24.0-44.0) % Monocytes % 6.5 (0.0-12.0) % Eosinophils % 1.5 (0.00-5.0) % Basophils % 0.5 (0.0-0.4) % Absolute Granulocytes 3.94 (1.4-6.9) x10^3/uL Basophils # 0.03 (0-0.4) x10^3/uL Sodium 136 L (137-145) mmol/L Potassium 4.2 (3.5-5.1) mmol/L Chloride 108 H (98-107) mmol/L Carbon Dioxide 23 (22-30) mmol/L Anion Gap 9.3 (5-15) MEQ/L BUN 17 (7-17) mg/dL Creatinine 0.76 (0.52-1.04) mg/dL Estimated GFR > 60.0 ML/MIN Glucose 94 (74-106) mg/dL Calcium 8.2 L (8.4-10.2) mg/dL Magnesium (1.6-2.3) mg/dL Total Bilirubin 0.60 (0.2-1.3) mg/dL AST 53 H (14-36) U/L ALT 41 H (0-35) U/L Alkaline Phosphatase 91 (38-126) U/L Troponin I (0.000-0.034) ng/mL NT-Pro-B Natriuret Pep (0-900) pg/mL Serum Total Protein 6.4 (6.3-8.2) g/dL Albumin 2.9 L (3.5-5.0) g/dL Urine Opiates Level (NEGATIVE) Ur Methadone (NEGATIVE) Urine Barbiturates (NEGATIVE) Ur Phencyclidine (PCP) (NEGATIVE) Urine Amphetamine (NEGATIVE) U Benzodiazepine Level (NEGATIVE) Urine Marijuana (THC) (NEGATIVE) Influenza Type A Ag (NEGATIVE) Influenza Type B Ag (NEGATIVE) RSV (PCR) (Negative) SARS-CoV-2 (PCR) (NEGATIVE) Slides for Path Review YES - Radiology Exams Ordered Rad Exams-Entire Visit: Radiology Procedures Category Date Time Status CHEST 1 VIEW (PORTABLE) Stat Exams 12/23/21 21:03 Completed ECHO W/2D AND DOPPLER [US] Routine Exams 12/24/21 Ordered - Procedures and Test Procedures and Tests throughout Hospitalization: Therapy Orders & Screens 12/24/21 01:00 RT Screen per Nursing Assess ONCE Comment: Protocol Order Physician Instructions: Greater than 3 points order RT Admission Screen Reason For Exam: Triggered on Admission Diagnosis: SVT Diagnosis: SVT Pneumonia: No Home O2: Yes: 2L NC at HS Asthma: No CHF: Yes Home CPAP/BIPAP: No Home Nebs/MDI: Yes Total Points: 13 Smoking Cessation Education ONCE Comment: Diagnosis: SVT Smoking Status: Current every day smoker How long have you smoked: 33 years Have you smoked in the past 12 months: Yes Approximately how many cigarettes per day: 20 Do you dip or chew tobacco: No 12/24/21 01:11 Respiratory Therapy Assessment DAILY Comment: Diagnosis: SVT - Discharge Disposition: Home, Self-Care Condition: Stable Prescriptions: No Action Metoprolol Tartrate 50 mg [Lopressor 50 MG] 50 mg PO BID Clopidogrel Bisulfate [Clopidogrel] 75 mg PO DAILY Atorvastatin Calcium 40 mg PO QHS Losartan Potassium [Cozaar] 25 mg PO DAILY Pregabalin [Lyrica 100Mg] 100 mg PO BID Gabapentin 100 mg PO TID Albuterol Sulfate [Proair Respiclick] 90 mcg IH DAILY Progesterone, Micronized [Progesterone] 100 mg PO QHS Buprenorphine HCl/Naloxone HCl [Suboxone 8 mg-2 mg Sl Film] 1 tablet PO BID Apixaban [Eliquis 5 mg Tablet] 5 mg PO BID Doxycycline Hyclate 100 mg PO BID Trazodone HCl 50 mg [Desyrel 50 mg] 50 mg PO QHS Quetiapine Fumarate [Seroquel] 25 mg PO QHS Follow up with: ALLEY JACKSON DO [Primary Care Provider] -
--- NOTE | 2021-12-24 16:25 | PCM.DCORD ---
- Discharge Disposition: Home, Self-Care Condition: Stable Prescriptions: New Potassium Chloride [Klor-Con 10] 10 meq PO DAILY #10 tab Furosemide [Lasix] 20 mg PO DAILY #30 tablet Continue Metoprolol Tartrate 50 mg [Lopressor 50 MG] 50 mg PO BID Clopidogrel Bisulfate [Clopidogrel] 75 mg PO DAILY Atorvastatin Calcium 40 mg PO QHS Losartan Potassium [Cozaar] 25 mg PO DAILY Pregabalin [Lyrica 100Mg] 100 mg PO BID Gabapentin 100 mg PO TID Albuterol Sulfate [Proair Respiclick] 90 mcg IH DAILY Progesterone, Micronized [Progesterone] 100 mg PO QHS Buprenorphine HCl/Naloxone HCl [Suboxone 8 mg-2 mg Sl Film] 1 tablet PO BID Apixaban [Eliquis 5 mg Tablet] 5 mg PO BID Trazodone HCl 50 mg [Desyrel 50 mg] 50 mg PO QHS Quetiapine Fumarate [Seroquel] 25 mg PO QHS Discontinued Doxycycline Hyclate 100 mg PO BID Follow up with: ALLEY JACKSON DO [Primary Care Provider] -
[2021-12-24] MEDS ORDERED: NON-FORMULARY ITEM (Progesterone, Micronized [Progesterone] 100 MG Capsule) PO SCH (22:00)
--- NOTE | 2021-12-25 13:08 | ECHO ---
Transthoracic echocardiographic examination and color Doppler was done on 12/24/2021. INDICATION: Elevated BNP and chest pain. IMPRESSION: 1) NO REGIONAL WALL MOTION ABNORMALITY. ESTIMATED GLOBAL LEFT VENTRICULAR EJECTION FRACTION OF ABOUT 60 TO 65%. 2) MODERATE TO SEVERE MITRAL REGURGITATION. 3) MODERATE TRICUSPID REGURGITATION. RIGHT VENTRICULAR SYSTOLIC PRESSURE OF 75 MM OF MERCURY SUGGESTIVE OF MODERATE TO SEVERE PULMONARY HYPERTENSION. 4) TRACE AORTIC REGURGITATION. 5) TRACE PULMONARY INSUFFICIENCY. 6) LEFT VENTRICULAR HYPERTROPHY. 7) MILDLY DILATED RIGHT SIDE CHAMBERS. 8) LEFT VENTRICLE DIASTOLIC DYSFUNCTION. 9) MODERATELY DILATED LEFT ATRIUM. The left ventricle is visualized and demonstrated adequate motion of all the segments. Estimated global left ventricular ejection fraction between 60 to 65%. There is concentric left ventricular hypertrophy. There is concentric left ventricular hypertrophy. 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 Color flow study demonstrated moderate to severe mitral regurgitation. The left atrium is moderately dilated. The aortic valve is sclerotic but opens adequately. There is no significant gradient across left ventricular outflow tract. There is trace aortic regurgitation. The right side chambers are mildly dilated. There is moderate tricuspid regurgitation. The right ventricular systolic pressure of 75 mm of Mercury suggestive of moderate to severe pulmonary hypertension. There is also trace pulmonic insufficiency. Tissue Doppler study of the lateral mitral annulus is suggestive of left ventricle diastolic dysfunction.
== END 2021-12-24 16:48 | disposition home or self-care (01) ==
LOC: ED 20:34 → MED SURG 23:25
PROVIDERS: ADMIT Family Medicine; ATTEND Family Medicine
DX: I47.1 Supraventricular tachycardia (principal); R07.9 Chest pain, unspecified; I11.0 Hypertensive heart disease with heart failure; I50.9 Heart failure, unspecified; E78.00 Pure hypercholesterolemia, unspecified; Z79.01 Long term (current) use of anticoagulants; Z79.899 Other long term (current) drug therapy; Z20.828 Contact with and (suspected) exposure to other viral communicable diseases; Z72.0 Tobacco use
CPT/HCPCS: 0241U; 36000; 36415; 71045; 80053; 80307; 83880; 84484; 85025; 93005; 93041; 93268; 93306; 94640; 94760; 96374; 96375; 96376; 99285; 99291; G0378; 83735; J0153; J2405; A9270-GY

== ENCOUNTER 2023-09-30 05:54 | Emergency (ER) | payer OTHER ==
[2023-09-30] MEDS: DUONEB 0.5-3 MG/3 ml Neb IH ONE (06:00)
[2023-09-30] MEDS ORDERED: Cardizem IV 50 MG/10 ML IV ONE (06:08)
[2023-09-30] MEDS ORDERED: LOPRESSOR INJECTION IV ONE (06:08)
[2023-09-30] MEDS: Cardizem IV 50 MG/10 ML IV ONE (06:09)
[2023-09-30 06:12] VITALS: TEMP 98.4
[2023-09-30] MEDS ORDERED: Zofran 4 MG/2 ML VIAL ONE (06:16)
[2023-09-30] MEDS: LOPRESSOR INJECTION IV ONE (06:19)
[2023-09-30] MEDS: Zofran 4 MG/2 ML VIAL IV ONE (06:23)
[2023-09-30 06:36] LABS: A-aADO2 248; ABG HEMOGLOBIN 13.6; ABG POTASSIUM 3.7 (3.5-5.1); ARTERIAL BLD GAS O2 SATURATION 87.3 % (95-100); ARTERIAL BLOOD GAS BASE EXCESS 3.3 (-2.0-2.0); ARTERIAL BLOOD GAS FIO2 50 %; ARTERIAL BLOOD GAS PCO2 41 mmHg (35-45); ARTERIAL BLOOD GAS PO2 57 mmHg (75-100); ARTERIAL BLOOD GAS pH 7.44 (7.35-7.45); CARBOXYHEMOGLOBIN 1.6 % THgb (0.0-6.9); HCO3- 27.8 (22-28); HGB O2 SAT 85.5 g/dF (94-100); Methhemoglobin 0.6 % (1.4-1.5); paO2 pAO1 0.19
[2023-09-30 06:42] LABS: BASOPHIL % 0.4 % (0.0-0.4); Basophil (Absolute #) 0.05 x10^3/uL (0-0.4); Eosinophil % 1.2 % (0.00-5.0); Eosinophil (Absolute #) 0.14 x10^3/uL (0-0.5); Hematocrit 41.6 % (35-47); Hemoglobin 12.9 g/dL (12.0-16.0); IMMATURE GRAN # 0.05 x10^3u/L (0.00-0.03); IMMATURE GRAN % 0.4 % (0.00-0.4); Lymphocyte (Absolute #) 1.13 x10^3/uL (1.0-4.6); Lymphocytes % 9.7 % (24.0-44.0); Mean Cell Volume 85.2 fL (78-100); Mean Corpuscular Hemoglobin 26.4 pg (26-32); Mean Platelet Volume 10.6 fL (7.5-11.0); Monocyte (Absolute #) 0.67 x10^3/uL (0.0-1.3); Monocytes % 5.8 % (0.0-12.0); Neutrophil % 82.5 % (36.0-66.0); Platelet Count 211 x10^3/uL (150-450); Red Blood Count 4.88 x10^6/uL (4.1-5.4); Red Cell Distribution Width 16.2 % (11.5-14.0); White Blood Count 11.6 x10^3/uL (4.0-10.5)
--- NOTE | 2023-09-30 06:42 | ERPHSYRPT ---
- History of Present Illness Source: patient Exam Limitations: clinical condition Patient Subjective Stated Complaint: pt states she woke up th is morning and couldnt breathe. states she was short of breath some before going to bed. Triage Nursing Assessment: pt alert and oriented, answers questions with short replies. pt ambulates back to room with steady gait noted. occasional cough noted. crackles noted to bilat lung bases.breath sounds diminished bilat. skin warm and dry. pt yelling at times. Activities at Onset: none Severity of Dyspnea-Max: moderate Severity of Dyspnea-Current: moderate Possible Cause: occasional episodes Modifying Factors: Improves With: nothing Associated Symptoms: anxiety, heart racing, No chest pain/discomfort Hx Tetanus, Diphtheria Vaccination/Date Given: Yes Hx Influenza Vaccination/Date Given: No Hx Pneumococcal Vaccination/Date Given: No Immunizations Up to Date: Yes <SARA MALLOY - Last Filed: 09/30/23 06:36> <BEE LESLIE - Last Filed: 09/30/23 12:34> - History of Present Illness Time Seen by Provider: 09/30/23 05:55 Physician History: This is a morbidly obese 52-year-old white female patient of primary care physician Dr. 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 Patient has a history of mitral valve replacement approximately 6 months ago at [facility] in [place]. She began having shortness of breath last evening and when she woke up this morning the shortness of breath was worse. Patient arrives to the emergency department with a room air oxygen saturation level of 88%. She has a heart rate of 145 bpm and the rhythm is atrial fibrillation with RVR. Patient has a history of atrial fibrillation. Patient is on digoxin and metoprolol. Patient also has a history of gastroesophageal reflux disease, hypertension and hyperlipidemia. She has very little chest pain. Her primary complaint is shortness of breath. (SARA MALLOY) Allergies/Adverse Reactions: morphine Allergy (Verified 12/23/21 23:31) Home Medications: Albuterol Sulfate [Proair Respiclick] 2 puffs IH Q6H 12/23/21 [History] Atorvastatin Calcium 40 mg PO QHS 12/23/21 [History] Gabapentin 100 mg PO TID 12/23/21 [History] Metoprolol Tartrate 50 mg [Lopressor 50 MG] 50 mg PO BID 12/23/21 [History] Progesterone, Micronized [Progesterone] 100 mg PO QHS 12/23/21 [History] Quetiapine Fumarate [Seroquel] 25 mg PO BID 12/24/21 [History] Trazodone HCl 50 mg [Desyrel 50 mg] 50 mg PO QHS 12/24/21 [History] Buprenorphine HCl/Naloxone HCl [Buprenorphin-Naloxon 8-2 mg Sl] 1 each SL BID 03/24/23 [History] Losartan Potassium 100 mg PO DAILY 03/24/23 [History] Potassium Chloride [Klor-Con 10] 20 meq PO DAILY 03/24/23 [History] Pregabalin 150 mg PO BID 03/24/23 [History] Sertraline HCl 50 mg [Zoloft 50 mg Tablet] 50 mg PO DAILY 03/24/23 [History] Cholecalciferol (Vitamin D3) [Vitamin D] 1,000 unit PO DAILY 07/03/23 [History] Furosemide [Lasix] 20 mg PO DAILY 07/03/23 [History] Fluticasone/Umeclidin/Vilanter [Trelegy Ellipta 200-62.5-25] 1 each IH DAILY 07/30/23 [History] Digoxin 0.125 mg Tablet [Lanoxin 0.125MG TABLET] 0.125 mg PO DAILY 09/30/23 [History] Melatonin 5 mg PO HS 09/30/23 [History] Pantoprazole 20 mg [Protonix 20MG Tablet] 20 mg PO DAILY 09/30/23 [History] Travel Risk - International Travel Have you traveled outside of the country in past 3 weeks: No - Emerging Infectious Disease Are you exhibiting symptoms associated with any current EIDs: Yes Symptoms: Cough: New Onset <SARA MALLOY - Last Filed: 09/30/23 06:36> - Review of Systems Constitutional: No Symptoms Eyes: No Symptoms Ears, Nose, & Throat: No Symptoms Respiratory: Dyspnea Cardiac: Palpitations Abdominal/Gastrointestinal: Nausea Genitourinary Symptoms: No Symptoms Musculoskeletal: No Symptoms Skin: No Symptoms Neurological: No Symptoms Psychological: No Symptoms Endocrine: No Symptoms Hematologic/Lymphatic: No Symptoms Immunological/Allergic: No Symptoms All Other Systems: Reviewed and Negative <SARA MALLOY - Last Filed: 09/30/23 06:36> - Past Medical History Pertinent Past Medical History: Yes Neurological History: No Pertinent History ENT History: No Pertinent History Cardiac History: Congestive Heart Failure, High Cholesterol, Hypertension Respiratory History: Bronchitis, COPD Endocrine Medical History: No Pertinent History Musculoskeletal History: No Pertinent History GI Medical History: Other History: No Pertinent History Psycho-Social History: No Pertinent History Female Reproductive Disorders: No Pertinent History Other Medical History: celiac disease - Past Surgical History Past Surgical History: Yes Neuro Surgical History: No Pertinent History Cardiac: Cardiac Catheterization, Valve Replacement, Vascular Surgery Respiratory: No Pertinent History Gastrointestinal: Cholecystectomy Genitourinary: No Pertinent History Musculoskeletal: No Pertinent History Female Surgical History: No Pertinent History Other Surgical History: cardiac ablation, mitral valve replacement- mechanical - Social History Smoking Status: Current every day smoker How long have you smoked: 35 Exposure to second hand smoke: Yes Drug Use: none <SARA MALLOY - Last Filed: 09/30/23 06:36> - Physical Exam General Appearance: moderate distress, alert, anxiety, obese Eye Exam: PERRL/EOMI, eyes nml inspection Ears, Nose, Throat Exam: hearing grossly normal, normal ENT inspection, normal pharynx Neck Exam: normal inspection, non-tender, supple, full range of motion Respiratory Exam: normal breath sounds, lungs clear, respiratory distress, airway intact, No chest tenderness Cardiovascular/Chest Exam: tachycardia, irregular Abdominal/Gastrointestinal Exam: soft, normal bowel sounds, No tenderness Rectal Exam: not done Extremity Exam: non-tender, normal range of motion, pedal edema (Mild feet and ankle edema) Neurologic Exam: alert, oriented x 3, cooperative, 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 nml as tested Skin Exam: diaphoresis Lymphatic Exam: No adenopathy SpO2 Interpretation: hypoxic, ABG ordered, O2 applied SpO2: 93 O2 Delivery: Oxymask <SARA MALLOY - Last Filed: 09/30/23 06:36> - Nursing Vital Signs Nursing Vital Signs: Initial Vital Signs Temperature 98.4 F 09/30/23 05:55 Pulse Rate 131 H 09/30/23 05:55 Respiratory Rate 28 H 09/30/23 05:55 Blood Pressure 181/97 09/30/23 05:55 O2 Sat by Pulse Oximetry 87 L 09/30/23 05:55 Pain Scale Pain Intensity 0 - Course Nursing assessment & vital signs reviewed: Yes EKG Interpreted by Me: RATE (145), A-fib, Other (No evidence of acute ischemic changes. However there were mild depression ST segment diffusely) <SARA MALLOY - Last Filed: 09/30/23 06:36> Ordered Tests: Active Orders 24 hr Category Date Time Status EKG-ER Only STAT Care 09/30/23 06:04 Active IV Insertion STAT Care 09/30/23 06:04 Active Pulse Oximetry (ED) STAT Care 09/30/23 06:04 Active CHEST 1 VIEW (PORTABLE) Stat Exams 09/30/23 06:04 Completed ABG [ARTERIAL BLOOD GASES] Stat Lab 09/30/23 06:24 Completed BLOOD CULTURE Stat Lab 09/30/23 06:38 Received CBC W DIFF Stat Lab 09/30/23 06:04 Completed CMP Stat Lab 09/30/23 06:11 Completed Lactic Acid Stat Lab 09/30/23 06:22 Completed Lactic Acid Stat Lab 09/30/23 08:24 Completed MAGNESIUM Stat Lab 09/30/23 06:11 Completed NT PRO BNPII Stat Lab 09/30/23 06:11 Completed PROTIME WITH INR Stat Lab 09/30/23 06:11 Completed TROPONIN Q4H Lab 09/30/23 06:11 Completed TROPONIN Q4H Lab 09/30/23 10:10 Completed TROPONIN Q4H Lab 09/30/23 14:15 Ordered UA W/RFX UR CULTURE Stat Lab 09/30/23 08:43 Completed Respiratory Therapy Assessment UD RT 09/30/23 06:16 Completed Medication Summary Generic Name Dose Route Start Last Admin Trade Name Freq PRN Reason Stop Dose Admin Diltiazem HCl 100 mls @ 5 mls/hr 09/30/23 06:35 09/30/23 10:22 Cardizem Drip 100 Mg/100 Ml D5w IV 10/30/23 06:34 5 mg/hr .Q20H PRN 5 mls/hr HEART RATE/ A-FIB Titration Protocol 5 MG/HR Discontinued Medications Generic Name Dose Route Start Last Admin Trade Name Alycia PRN Reason Stop Dose Admin Acetaminophen 1,000 mg 09/30/23 08:30 09/30/23 08:36 Acetaminophen 500 Mg Tablet PO 09/30/23 08:31 1,000 mg STAT STA Administration Acetaminophen Confirm 09/30/23 08:32 Acetaminophen 500 Mg Tablet Administered 09/30/23 08:33 Dose 1,000 mg .ROUTE .STK-MED ONE Albuterol/Ipratropium 3 ml 09/30/23 06:17 09/30/23 06:00 Ipratropium/Albuterol Sulfate 3 Ml Ampul.Neb IH 09/30/23 06:18 3 ml STAT ONE Administration Diltiazem HCl 20 mg 09/30/23 06:05 09/30/23 06:09 Diltiazem Hcl Iv 5 Mg/Ml Vial IV 09/30/23 06:06 20 mg STAT ONE Administration Diltiazem HCl Confirm 09/30/23 06:08 Diltiazem Hcl Iv 5 Mg/Ml Vial Administered 09/30/23 06:09 Dose 50 mg IV .STK-MED ONE Furosemide 40 mg 09/30/23 08:56 09/30/23 09:09 Furosemide 40 Mg/4 Ml Vial IV 09/30/23 08:57 40 mg STAT ONE Administration Furosemide Confirm 09/30/23 09:09 Furosemide 40 Mg/4 Ml Vial Administered 09/30/23 09:10 Dose 40 mg .ROUTE .STK-MED ONE Metoprolol Tartrate 5 mg 09/30/23 06:04 09/30/23 06:19 Metoprolol Tartrate 5 Mg/5 Ml Vial IV 09/30/23 06:05 5 mg STAT ONE Administration Metoprolol Tartrate Confirm 09/30/23 06:08 Metoprolol Tartrate 5 Mg/5 Ml Vial Administered 09/30/23 06:09 Dose 5 mg IV .STK-MED ONE Ondansetron HCl Confirm 09/30/23 06:16 Ondansetron Hcl 4 Mg/2 Ml Vial Administered 09/30/23 06:17 Dose 4 mg .ROUTE .STK-MED ONE Ondansetron HCl 4 mg 09/30/23 06:22 09/30/23 06:23 Ondansetron Hcl 4 Mg/2 Ml Vial IV 09/30/23 06:23 4 mg STAT ONE Administration Lab/Rad Data: Laboratory Result Diagrams 09/30/23 06:04 09/30/23 06:11 Laboratory Results 09/30/23 09/30/23 09/30/23 Range/Units 10:10 08:43 08:24 WBC (4.0-10.5) x10^3/uL RBC (4.1-5.4) x10^6/uL Hgb (12.0-16.0) g/dL Hct (35-47) % MCV (78-100) fL MCH (26-32) pg MCHC (32-36) g/dL RDW (11.5-14.0) % Plt Count (150-450) x10^3/uL MPV (7.5-11.0) fL Gran % (36.0-66.0) % Immature Gran % (Auto) (0.00-0.4) % Nucleat RBC Rel Count (0.00-0.1) % Eos # (Auto) (0-0.5) x10^3/uL Immature Gran # (Auto) (0.00-0.03) x10^3u/L Absolute Lymphs (auto) (1.0-4.6) x10^3/uL Absolute Monos (auto) (0.0-1.3) x10^3/uL Absolute Nucleated RBC (0.00-0.01) x10^3u/L Lymphocytes % (24.0-44.0) % Monocytes % (0.0-12.0) % Eosinophils % (0.00-5.0) % Basophils % (0.0-0.4) % Absolute Granulocytes (1.4-6.9) x10^3/uL Basophils # (0-0.4) x10^3/uL PT (9.4-12.5) SECONDS INR (0.8-3.0) Puncture Site pCO2 (35-45) mmHg pO2 (75-100) mmHg Base Excess (-2.0-2.0) O2 Saturation (94-100) g/dF ABG pH (7.35-7.45) ABG HCO3 (22-28) ABG O2 Sat (Measured) (95-100) % Esa Test A-a Gradient a/A Ratio Hemoglobin Carboxyhemoglobin (0.0-6.9) % THgb Methemoglobin (1.4-1.5) % Temperature C POC O2 Flow Rate % Sodium (135-145) mmol/L Potassium (3.5-5.1) mmol/L Chloride (98-107) mmol/L Carbon Dioxide (22-30) mmol/L Anion Gap (5-15) MEQ/L BUN (7-17) mg/dL Creatinine (0.52-1.04) mg/dL Estimated GFR ML/MIN Glucose (74-106) mg/dL Lactic Acid 2.3 H (0.4-2.0) Calcium (8.4-10.2) mg/dL Magnesium (1.6-2.3) mg/dL Total Bilirubin (0.2-1.3) mg/dL AST (14-36) U/L ALT (0-35) U/L Alkaline Phosphatase (38-126) U/L Troponin I 0.372 H* (0.000-0.033) ng/mL NT-Pro-B Natriuret Pep (<300) pg/mL Serum Total Protein (6.3-8.2) g/dL Albumin (3.5-5.0) g/dL Urine Color Yellow (Yellow) Urine Appearance Clear (Clear) Urine pH 7.0 (4.6-8.0) Ur Specific [place] 1.015 (1.005-1.030) Urine Protein Negative (Negative) Urine Glucose (UA) Negative (Negative) mg/dL Urine Ketones Negative (Negative) Urine Blood Trace (Negative) Urine Nitrite Negative (Negative) Urine Bilirubin Negative (Negative) Urine Urobilinogen 1.0 A (0.2) mg/dL Ur Leukocyte Esterase Negative (Negative) U Hyaline Cast (Auto) NONE SEEN (0-2) /LPF Urine Microscopic RBC 6-10 A (0-5) /HPF Urine Microscopic WBC 0-2 (0-5) /HPF Ur Epithelial Cells None Seen (None Seen) /HPF Urine Bacteria None Seen (None Seen) /HPF Urine Culture Reflexed NO (NO) Digoxin (0.8-1.9) ng/mL Influenza Type A Ag (NEGATIVE) Influenza Type B Ag (NEGATIVE) RSV (PCR) (NEGATIVE) SARS-CoV-2 (PCR) (NEGATIVE) 09/30/23 09/30/2309/29/24 Range/Units 06:24 06:22 06:20 WBC (4.0-10.5) x10^3/uL RBC (4.1-5.4) x10^6/uL Hgb (12.0-16.0) g/dL Hct (35-47) % MCV (78-100) fL MCH (26-32) pg MCHC (32-36) g/dL RDW (11.5-14.0) % Plt Count (150-450) x10^3/uL MPV (7.5-11.0) fL Gran % (36.0-66.0) % Immature Gran % (Auto) (0.00-0.4) % Nucleat RBC Rel Count (0.00-0.1) % Eos # (Auto) (0-0.5) x10^3/uL Immature Gran # (Auto) (0.00-0.03) x10^3u/L Absolute Lymphs (auto) (1.0-4.6) x10^3/uL Absolute Monos (auto) (0.0-1.3) x10^3/uL Absolute Nucleated RBC (0.00-0.01) x10^3u/L Lymphocytes % (24.0-44.0) % Monocytes % (0.0-12.0) % Eosinophils % (0.00-5.0) % Basophils % (0.0-0.4) % Absolute Granulocytes (1.4-6.9) x10^3/uL Basophils # (0-0.4) x10^3/uL PT (9.4-12.5) SECONDS INR (0.8-3.0) Puncture Site RIGHT RADIAL pCO2 41 (35-45) mmHg pO2 57 L (75-100) mmHg Base Excess 3.3 H (-2.0-2.0) O2 Saturation 85.5 L (94-100) g/dF ABG pH 7.44 (7.35-7.45) ABG HCO3 27.8 (22-28) ABG O2 Sat (Measured) 87.3 L (95-100) % Esa Test YES A-a Gradient 248 a/A Ratio 0.19 Hemoglobin 13.6 Carboxyhemoglobin 1.6 (0.0-6.9) % THgb Methemoglobin 0.6 L (1.4-1.5) % Temperature 37.0 C POC O2 Flow Rate 50 % Sodium (135-145) mmol/L Potassium 3.7 (3.5-5.1) mmol/L Chloride (98-107) mmol/L Carbon Dioxide (22-30) mmol/L Anion Gap (5-15) MEQ/L BUN (7-17) mg/dL Creatinine (0.52-1.04) mg/dL Estimated GFR ML/MIN Glucose (74-106) mg/dL Lactic Acid 2.8 H (0.4-2.0) Calcium (8.4-10.2) mg/dL Magnesium (1.6-2.3) mg/dL Total Bilirubin (0.2-1.3) mg/dL AST (14-36) U/L ALT (0-35) U/L Alkaline Phosphatase (38-126) U/L Troponin I (0.000-0.033) ng/mL NT-Pro-B Natriuret Pep (<300) pg/mL Serum Total Protein (6.3-8.2) g/dL Albumin (3.5-5.0) g/dL Urine Color (Yellow) Urine Appearance (Clear) Urine pH (4.6-8.0) Ur Specific [place] (1.005-1.030) Urine Protein (Negative) Urine Glucose (UA) (Negative) mg/dL Urine Ketones (Negative) Urine Blood (Negative) Urine Nitrite (Negative) Urine Bilirubin (Negative) Urine Urobilinogen (0.2) mg/dL Ur Leukocyte Esterase (Negative) U Hyaline Cast (Auto) (0-2) /LPF Urine Microscopic RBC (0-5) /HPF Urine Microscopic WBC (0-5) /HPF Ur Epithelial Cells (None Seen) /HPF Urine Bacteria (None Seen) /HPF Urine Culture Reflexed (NO) Digoxin (0.8-1.9) ng/mL Influenza Type A Ag NEGATIVE (NEGATIVE) Influenza Type B Ag NEGATIVE (NEGATIVE) RSV (PCR) NEGATIVE (NEGATIVE) SARS-CoV-2 (PCR) NEGATIVE (NEGATIVE) 09/30/23 09/30/23 09/30/23 Range/Units 06:11 06:11 06:11 WBC (4.0-10.5) x10^3/uL RBC (4.1-5.4) x10^6/uL Hgb (12.0-16.0) g/dL Hct (35-47) % MCV (78-100) fL MCH (26-32) pg MCHC (32-36) g/dL RDW (11.5-14.0) % Plt Count (150-450) x10^3/uL MPV (7.5-11.0) fL Gran % (36.0-66.0) % Immature Gran % (Auto) (0.00-0.4) % Nucleat RBC Rel Count (0.00-0.1) % Eos # (Auto) (0-0.5) x10^3/uL Immature Gran # (Auto) (0.00-0.03) x10^3u/L Absolute Lymphs (auto) (1.0-4.6) x10^3/uL Absolute Monos (auto) (0.0-1.3) x10^3/uL Absolute Nucleated RBC (0.00-0.01) x10^3u/L Lymphocytes % (24.0-44.0) % Monocytes % (0.0-12.0) % Eosinophils % (0.00-5.0) % Basophils % (0.0-0.4) % Absolute Granulocytes (1.4-6.9) x10^3/uL Basophils # (0-0.4) x10^3/uL PT 17.5 H (9.4-12.5) SECONDS INR 1.66 (0.8-3.0) Puncture Site pCO2 (35-45) mmHg pO2 (75-100) mmHg Base Excess (-2.0-2.0) O2 Saturation (94-100) g/dF ABG pH (7.35-7.45) ABG HCO3 (22-28) ABG O2 Sat (Measured) (95-100) % Esa Test A-a Gradient a/A Ratio Hemoglobin Carboxyhemoglobin (0.0-6.9) % THgb Methemoglobin (1.4-1.5) % Temperature C POC O2 Flow Rate % Sodium (135-145) mmol/L Potassium (3.5-5.1) mmol/L Chloride (98-107) mmol/L Carbon Dioxide (22-30) mmol/L Anion Gap (5-15) MEQ/L BUN (7-17) mg/dL Creatinine (0.52-1.04) mg/dL Estimated GFR ML/MIN Glucose (74-106) mg/dL Lactic Acid (0.4-2.0) Calcium (8.4-10.2) mg/dL Magnesium (1.6-2.3) mg/dL Total Bilirubin (0.2-1.3) mg/dL AST (14-36) U/L ALT (0-35) U/L Alkaline Phosphatase (38-126) U/L Troponin I 0.058 H* (0.000-0.033) ng/mL NT-Pro-B Natriuret Pep (<300) pg/mL Serum Total Protein (6.3-8.2) g/dL Albumin (3.5-5.0) g/dL Urine Color (Yellow) Urine Appearance (Clear) Urine pH (4.6-8.0) Ur Specific [place] (1.005-1.030) Urine Protein (Negative) Urine Glucose (UA) (Negative) mg/dL Urine Ketones (Negative) Urine Blood (Negative) Urine Nitrite (Negative) Urine Bilirubin (Negative) Urine Urobilinogen (0.2) mg/dL Ur Leukocyte Esterase (Negative) U Hyaline Cast (Auto) (0-2) /LPF Urine Microscopic RBC (0-5) /HPF Urine Microscopic WBC (0-5) /HPF Ur Epithelial Cells (None Seen) /HPF Urine Bacteria (None Seen) /HPF Urine Culture Reflexed (NO) Digoxin 0.6 L (0.8-1.9) ng/mL Influenza Type A Ag (NEGATIVE) Influenza Type B Ag (NEGATIVE) RSV (PCR) (NEGATIVE) SARS-CoV-2 (PCR) (NEGATIVE) 09/30/23 09/30/23 Range/Units 06:11 06:04 WBC 11.6 H (4.0-10.5) x10^3/uL RBC 4.88 (4.1-5.4) x10^6/uL Hgb 12.9 (12.0-16.0) g/dL Hct 41.6 (35-47) % MCV 85.2 (78-100) fL MCH 26.4 (26-32) pg MCHC 31.0 L (32-36) g/dL RDW 16.2 H (11.5-14.0) % Plt Count 211 (150-450) x10^3/uL MPV 10.6 (7.5-11.0) fL Gran % 82.5 H (36.0-66.0) % Immature Gran % (Auto) 0.4 (0.00-0.4) % Nucleat RBC Rel Count 0.0 (0.00-0.1) % Eos # (Auto) 0.14 (0-0.5) x10^3/uL Immature Gran # (Auto) 0.05 H (0.00-0.03) x10^3u/L Absolute Lymphs (auto) 1.13 (1.0-4.6) x10^3/uL Absolute Monos (auto) 0.67 (0.0-1.3) x10^3/uL Absolute Nucleated RBC 0.00 (0.00-0.01) x10^3u/L Lymphocytes % 9.7 L (24.0-44.0) % Monocytes % 5.8 (0.0-12.0) % Eosinophils % 1.2 (0.00-5.0) % Basophils % 0.4 (0.0-0.4) % Absolute Granulocytes 9.60 H (1.4-6.9) x10^3/uL Basophils # 0.05 (0-0.4) x10^3/uL PT (9.4-12.5) SECONDS INR (0.8-3.0) Puncture Site pCO2 (35-45) mmHg pO2 (75-100) mmHg Base Excess (-2.0-2.0) O2 Saturation (94-100) g/dF ABG pH (7.35-7.45) ABG HCO3 (22-28) ABG O2 Sat (Measured) (95-100) % Esa Test A-a Gradient a/A Ratio Hemoglobin Carboxyhemoglobin (0.0-6.9) % THgb Methemoglobin (1.4-1.5) % Temperature C POC O2 Flow Rate % Sodium 143 (135-145) mmol/L Potassium 3.8 (3.5-5.1) mmol/L Chloride 106 (98-107) mmol/L Carbon Dioxide 27 (22-30) mmol/L Anion Gap 13.0 (5-15) MEQ/L BUN 15 (7-17) mg/dL Creatinine 1.13 H (0.52-1.04) mg/dL Estimated GFR 57.8 ML/MIN Glucose 199 H (74-106) mg/dL Lactic Acid (0.4-2.0) Calcium 9.0 (8.4-10.2) mg/dL Magnesium 1.5 L (1.6-2.3) mg/dL Total Bilirubin 1.00 (0.2-1.3) mg/dL AST 23 (14-36) U/L ALT 17 (0-35) U/L Alkaline Phosphatase 121 (38-126) U/L Troponin I (0.000-0.033) ng/mL NT-Pro-B Natriuret Pep 3840 (<300) pg/mL Serum Total Protein 8.4 H (6.3-8.2) g/dL Albumin 4.0 (3.5-5.0) g/dL Urine Color (Yellow) Urine Appearance (Clear) Urine pH (4.6-8.0) Ur Specific [place] (1.005-1.030) Urine Protein (Negative) Urine Glucose (UA) (Negative) mg/dL Urine Ketones (Negative) Urine Blood (Negative) Urine Nitrite (Negative) Urine Bilirubin (Negative) Urine Urobilinogen (0.2) mg/dL Ur Leukocyte Esterase (Negative) U Hyaline Cast (Auto) (0-2) /LPF Urine Microscopic RBC (0-5) /HPF Urine Microscopic WBC (0-5) /HPF Ur Epithelial Cells (None Seen) /HPF Urine Bacteria (None Seen) /HPF Urine Culture Reflexed (NO) Digoxin (0.8-1.9) ng/mL Influenza Type A Ag (NEGATIVE) Influenza Type B Ag (NEGATIVE) RSV (PCR) (NEGATIVE) SARS-CoV-2 (PCR) (NEGATIVE) - Progress Progress: improved Air Movement: fair Blood Culture(s) Obtained: Yes <SARA MALLOY - Last Filed: 09/30/23 06:36> - Progress Discussed with : Other Will see patient in: other Counseled pt/family regarding: lab results, diagnosis, rad results <BEE LESLIE - Last Filed: 09/30/23 12:34> - Progress Progress Note: 09/30/23 06:45 My medical decision making and the assignment of high complexity to this patient's medical issue today is based on review of the patient's past medical history, review the patient's medication list, review of patient drug allergy list, history present illness and physical findings on examination. The workup in this patient includes RT evaluation, placement of intravenous line, twelve- lead EKG, infusion of Cardizem bolus followed by Cardizem drip, infusion of Lopressor intravenously, CBC, CMP, BNP, troponin level, magnesium level, twelve- lead EKG, viral swabs, chest x-ray. Differential diagnosis includes CHF exacerbation, COPD exacerbation, myocardial infarction, A-fib with RVR, electrolyte abnormalities, pneumonia, viral illness I am transferring care of this patient to Dr. Bee Leslie at shift change. I have advised him of this patient's past medical history, presenting complaint, workup in progress. He will follow-up on the workup results and make final disposition. (SARA MALLOY) Patient Dors doctors at approximately [address] Leslie advised to follow-up on pending studies and make final disposition. Labs reviewed. Lactic acid improving however troponin trending upward. In light of abnormal trending upward troponin the decision was made to transfer patient to higher level of care. We do not have cardiology services in our hospital. Workup reveals congestive heart failure. Chest x-ray reveals pulmonary edema. Lasix administered. Upon arrival to our ED patient was observed to have A-fib with RVR. Patient converted. Patient on Coumadin. Coumadin 1.6. However patient due for Coumadin dose. She took care Coumadin dose during her ED stay. Plan of care discussed with patient. Patient agrees to transfer to [facility] for further evaluation and treatment. We discussed the case with the transfer center. Patient auto accepted under Dr. Jimenes at 12:12 PM. Portions of this note were created with voice recognition technology. There may be grammatical, spelling, punctuation or sound alike errors 09/30/23 12:30 (BEE LESLIE) Medical Desision Making - Independent Historian Additional History obtained from: Spouse - Risk of complications The pt has a high risk of morbidity or mortality based on: Decision regarding hospitilization or escalation of hosp level of care <SARA MALLOY - Last Filed: 09/30/23 06:36> - Departure Departure Disposition: Transfer Critical Care Time: Yes Critical Care Time(excluding separately billable procedures): Critical 30-74 mins (30) <SARA MALLOY - Last Filed: 09/30/23 06:36> <BEE LESLIE - Last Filed: 09/30/23 12:34> - Departure Clinical Impression: Atrial fibrillation with RVR, Shortness of breath, Hypoxia, Elevated troponin, CHF (congestive heart failure), Pulmonary edema, Microscopic hematuria, Car diomegaly Condition: Fair Referrals: [facility]LOCATION] - Follow up/PCP as directed Instructions: Heart Failure
[2023-09-30 06:56] LABS: INR 1.66 (0.8-3.0); PROTIME 17.5 SECONDS (9.4-12.5)
[2023-09-30 07:11] LABS: Creatinine 1 1.13 mg/dL (0.52-1.04); EST GLOMERULAR FILTRATION RATE 57.8 ML/MIN; MAGNESIUM 1.5 mg/dL (1.6-2.3); Potassium 3.8 mmol/L (3.5-5.1); Total Protein 8.4 g/dL (6.3-8.2)
[2023-09-30 07:18] LABS: INFLUENZA A NEGATIVE (NEGATIVE); INFLUENZA B NEGATIVE (NEGATIVE); RESPIRATORY SYNCTIAL VIRUS NEGATIVE (NEGATIVE); SARS-CoV-2 Xpert Express NEGATIVE (NEGATIVE)
[2023-09-30] MEDS ORDERED: TYLENOL EXTRA STRENGTH 500 MG ONE (08:32)
[2023-09-30] MEDS ORDERED: CARDIZEM DRIP 100 MG/100 ML D5W 100 ML IV ONE (08:32)
[2023-09-30] MEDS: TYLENOL EXTRA STRENGTH 500 MG PO STA (08:36)
[2023-09-30] MEDS: CARDIZEM DRIP 100 MG/100 ML D5W 100 ML IV PRN (08:37)
--- NOTE | 2023-09-30 08:42 | XRAY ---
Indication: Short of breath. Comparison: February 28, 2023 Portable chest demonstrates interval cardiac valve replacement surgery. Also new cardiomegaly, pulmonary edema, and tiny bibasilar effusions favoring cardiac decompensation/CHF. Superimposed pneumonia not completely excluded. Bony thorax intact again with osteopenia, degenerative changes, and right neck surgical clips.
[2023-09-30 08:52] LABS: Appearance Clear (Clear); Bacteria None Seen /HPF (None Seen); Bilirubin Negative (Negative); Blood Trace (Negative); Epithelial Cells None Seen /HPF (None Seen); Glucose, Urine Negative (Negative); Hyaline Casts NONE SEEN /LPF (0-2); Ketones Negative (Negative); Leukocyte Esterase Negative (Negative); Nitrite Negative (Negative); Protein,Urine Dip Negative (Negative); Specific Gravity 1.015 (1.005-1.030); WBC 0-2 /HPF (0-5)
[2023-09-30 08:53] LABS: ADD URINE CULTURE? NO (NO)
[2023-09-30] MEDS: Lasix 40 MG/4 ML IV ONE (09:09)
[2023-09-30] MEDS ORDERED: Lasix 40 MG/4 ML ONE (09:09)
[2023-09-30 10:20] LABS: ABG SITE RIGHT RADIAL; ALLEN TEST OK? YES
[2023-09-30 14:28] VITALS: BP 102/76; PULSE 96; RESP 31; O2SAT 97
== END 2023-09-30 14:25 | disposition short-term general hospital (02) ==
LOC: ED 05:54
DX: I48.20 Chronic atrial fibrillation, unspecified (principal); R06.02 Shortness of breath; R09.02 Hypoxemia; R77.8 Other specified abnormalities of plasma proteins; I11.0 Hypertensive heart disease with heart failure; I50.9 Heart failure, unspecified; J81.1 Chronic pulmonary edema; R31.29 Other microscopic hematuria; I21.4 Non-ST elevation (NSTEMI) myocardial infarction; E78.5 Hyperlipidemia, unspecified; Z79.891 Long term (current) use of opiate analgesic; Z79.899 Other long term (current) drug therapy; Z72.0 Tobacco use
CPT/HCPCS: 0241U; 36000; 36415; 36600; 71045; 80053; 80162; 81001; 82375; 82803; 83605; 83735; 83880; 84484; 85025; 85610; 87040; 93005; 94640; 94760; 96365; 96366; 96374; 99285; 99291; 96375; J1940; J2405; A9270-GY

== ENCOUNTER 2024-06-22 15:31 | Emergency (ER) | payer OTHER ==
[2024-06-22 15:40] VITALS: TEMP 96.6
[2024-06-22] MEDS ORDERED: Augmentin 875-125 Tablet ONE (15:51)
[2024-06-22] MEDS ORDERED: Adacel Vial IM ONE (15:51)
[2024-06-22] MEDS: Augmentin 875-125 Tablet PO ONE (15:53)
[2024-06-22] MEDS: Adacel Vial IM ONE (15:53)
--- NOTE | 2024-06-22 15:53 | ERPHSYRPT ---
- History of Present Illness Time Seen by Provider: 06/22/24 15:45 Source: patient Exam Limitations: no limitations Patient Subjective Stated Complaint: PT states "I was feeding the animals yesterday and the rooster hit me with his claw on my wrist." Triage Nursing Assessment: Pt presented alert and oriented X 3, skin pwd. pt ambulates with an upright steady gait, able to speak in clear full sentences. Pt right wrist has small puncture wound noted swollen tender. Physician History: 53-year-old female presents to emergency department for evaluation and treatment of a puncture wound to her right lateral wrist. Patient states she was feeding her rooster when it dug its hind claw into her wrist. Injury occurred yesterday. Patient awoke today and the area of involvement was red and tender. Patient concerned for infection. Her tetanus is not up-to-date. No active pain. Patient also requesting x-ray of the right wrist. Pain described as an ache that is localized no radiation. Pain worse with movement and palpation. Pain improved with rest. No other injuries reported. Patient voices no other complaints or concerns at this time. Patient declined pain medication Portions of this note were created with voice recognition technology. There may be grammatical, spelling, punctuation or sound alike errors Timing/Duration: yesterday Severity: moderate Modifying Factors: Improves With: nothing Associated Symptoms: denies symptoms Allergies/Adverse Reactions: morphine Allergy (Verified 12/23/21 23:31) Home Medications: Albuterol Sulfate [Proair Respiclick] 2 puffs IH Q6H 12/23/21 [History] Atorvastatin Calcium 40 mg PO QHS 12/23/21 [History] Gabapentin 100 mg PO TID 12/23/21 [History] Metoprolol Tartrate 50 mg [Lopressor 50 MG] 100 mg PO BID 12/23/21 [History] Progesterone, Micronized [Progesterone] 100 mg PO QHS 12/23/21 [History] Quetiapine Fumarate [Seroquel] 25 mg PO BID 12/24/21 [History] Trazodone HCl 50 mg [Desyrel 50 mg] 50 mg PO QHS 12/24/21 [History] Buprenorphine HCl/Naloxone HCl [Buprenorphin-Naloxon 8-2 mg Sl] 1 each SL BID 03/24/23 [History] Losartan Potassium 100 mg PO DAILY 03/24/23 [History] Potassium Chloride [Klor-Con 10] 20 meq PO DAILY 03/24/23 [History] Pregabalin 150 mg PO BID 03/24/23 [History] Sertraline HCl 50 mg [Zoloft 50 mg Tablet] 50 mg PO DAILY 03/24/23 [History] Cholecalciferol (Vitamin D3) [Vitamin D] 1,000 unit PO DAILY 07/03/23 [History] Furosemide [Lasix] 20 mg PO DAILY 07/03/23 [History] Fluticasone/Umeclidin/Vilanter [Trelegy Ellipta 200-62.5-25] 1 each IH DAILY 07/30/23 [History] Digoxin 0.125 mg Tablet [Lanoxin 0.125MG TABLET] 0.125 mg PO DAILY 4 [History] Melatonin 5 mg PO HS 09/30/23 [History] Pantoprazole 20 mg [Protonix 20MG Tablet] 20 mg PO DAILY 09/30/23 [History] Metformin HCl [Metformin HCl ER] 500 mg PO DAILY 02/04/24 [History] Hx Tetanus, Diphtheria Vaccination/Date Given: No Hx Influenza Vaccination/Date Given: No Hx Pneumococcal Vaccination/Date Given: No Immunizations Up to Date: No Travel Risk - International Travel Have you traveled outside of the country in past 3 weeks: No - Emerging Infectious Disease Are you exhibiting symptoms associated with any current EIDs: No Symptoms: Cough: New Onset - Review of Systems Constitutional: No Symptoms, No Fever, No Chills Eyes: No Symptoms Ears, Nose, & Throat: No Symptoms Respiratory: No Symptoms, No Cough, No Dyspnea Cardiac: No Symptoms, No Chest Pain, No Edema, No Syncope Abdominal/Gastrointestinal: No Symptoms, No Abdominal Pain, No Nausea, No Vomiting, No Diarrhea Genitourinary Symptoms: No Symptoms, No Dysuria Musculoskeletal: No Symptoms, No Back Pain, No Neck Pain Skin: No Symptoms, No Rash Neurological: No Symptoms, No Dizziness, No Focal Weakness, No Sensory Changes Psychological: No Symptoms Endocrine: No Symptoms Hematologic/Lymphatic: No Symptoms Immunological/Allergic: No Symptoms All Other Systems: Reviewed and Negative - Past Medical History Pertinent Past Medical History: Yes Neurological History: No Pertinent History ENT History: No Pertinent History Cardiac History: Congestive Heart Failure, High Cholesterol, Hypertension Respiratory History: Bronchitis, COPD Endocrine Medical History: No Pertinent History Musculoskeletal History: No Pertinent History GI Medical History: Other History: No Pertinent History Psycho-Social History: No Pertinent History Female Reproductive Disorders: No Pertinent History Other Medical History: celiac disease - Past Surgical History Past Surgical History: Yes Neuro Surgical History: No Pertinent History Cardiac: Cardiac Catheterization, Valve Replacement, Vascular Surgery Respiratory: No Pertinent History Gastrointestinal: Cholecystectomy Genitourinary: No Pertinent History Musculoskeletal: No Pertinent History Female Surgical History: No Pertinent History Other Surgical History: cardiac ablation, mitral valve replacement- mechanical - Social History Smoking Status: Current every day smoker How long have you smoked: 35 Exposure to second hand smoke: Yes Drug Use: none - Social Determinants of Health Will the patient participate in the screening: Declined to provide - Nursing Vital Signs Nursing Vital Signs: Initial Vital Signs Temperature 96.6 F 06/22/24 15:35 Pulse Rate 92 H 06/22/24 15:35 Respiratory Rate 20 06/22/24 15:35 Blood Pressure 159/78 06/22/24 15:35 Pain Scale Pain Intensity 6 - Physical Exam General Appearance: no apparent distress, alert Eye Exam: PERRL/EOMI, eyes nml inspection Ears, Nose, Throat Exam: normal ENT inspection, moist mucous membranes Neck Exam: normal inspection, full range of motion Respiratory Exam: normal breath sounds, lungs clear, No respiratory distress Cardiovascular Exam: regular rate/rhythm, normal peripheral pulses Gastrointestinal/Abdomen Exam: soft, No tenderness, No mass Back Exam: normal inspection, normal range of motion, No CVA tenderness, No vertebral tenderness Extremity Exam: normal inspection, normal range of motion, pelvis stable, other (Female) Neurologic Exam: alert, oriented x 3, cooperative, normal mood/affect, sensation nml, No motor deficits Skin Exam: normal color, warm, dry, No rash Lymphatic Exam: No adenopathy SpO2 Interpretation: normal O2 Delivery: Room Air - Course Nursing assessment & vital signs reviewed: Yes - Radiology Exams Wrist X-ray Interpretation: Teleradiologist Report (No fracture or dislocations) Ordered Tests: Active Orders 24 hr Category Date Time Status WRIST (MIN 3 VIEWS) Stat Exams 06/22/24 15:49 Completed Medication Summary Discontinued Medications Generic Name Dose Route Start Last Admin Trade Name Freq PRN Reason Stop Dose Admin Amoxicillin/Clavulanate Potassium 875 mg 06/22/24 15:49 06/22/24 15:53 Amox Tr/Potassium Clavulanate 875 Mg Tablet PO 06/22/24 15:50 875 mg STAT ONE Administration Amoxicillin/Clavulanate Potassium Confirm 06/22/24 15:51 Amox Tr/Potassium Clavulanate 875 Mg Tablet Administered 06/22/24 15:52 Dose 875 mg .ROUTE .STK-MED ONE Diphtheria/Tetanus/Acell Pertussis 0.5 ml 06/22/24 15:48 06/22/24 15:53 Tdap --Diph,Pertuss(Acell),Tet Vac/Pf 0.5 Ml Vial IM 06/22/24 15:49 0.5 ml .ONCE ONE Administration Diphtheria/Tetanus/Acell Pertussis Confirm 06/22/24 15:51 Tdap --Diph,Pertuss(Acell),Tet Vac/Pf 0.5 Ml Vial Administered 06/22/24 15:52 Dose 0.5 ml IM .STK-MED ONE - Progress Progress: improved Progress Note: 53-year-old female presents to our ED with a puncture wound at the right wrist secondary to a rooster. Injury occurred yesterday. Physical exam reveals the puncture wound with some redness and tenderness adjacent to the wound. No lymphangitis no fever. Wrist range of motion is slightly limited secondary to discomfort. But patient declined pain medication. Tetanus was updated in our ED. Patient received an oral dose of Augmentin. The wound was irrigated and dressed by our nursing staff. X-ray negative for fracture dislocation. A prescription for Augmentin forwarded to patient's pharmacy. Patient agrees to follow-up with her primary care doctor within 48 hours for reevaluation. Patient otherwise feels well. She voices no other complaints or concerns at this time. Portions of this note were created with voice recognition technology. There may be grammatical, spelling, punctuation or sound alike errors Complexity of problem addressed is moderate acute complicated. No critical care time. Complexity of data reviewed and analyzed is moderate. Test ordered test reviewed results analyzed and correlated clinically with history and physical exam. X-ray independently reviewed by Dr. Leslie. Risk of complication and or risk of morbidity/mortality of patient management is moderate. A prescription for Augmentin forwarded to patient's pharmacy. Formal read pending. Vital stable. Time spent to discharge patient is approximately 15 minutes. Plan of care established for shared decision making. No social determinants of health present to impede follow-up. Portions of this note were created with voice recognition technology. There may be grammatical, spelling, punctuation or sound alike errors 06/22/24 15:58 Counseled pt/family regarding: diagnosis, need for follow-up, rad results - Departure Departure Disposition: Home Clinical Impression: Puncture wound of wrist Condition: Stable Critical Care Time: No Referrals: DANNI LYNN MD [Primary Care Provider] - Follow up/PCP as directed Additional Instructions: Discharge/Care Plan CAPRICE MCGRATH was seen on 06/22/24 in the Emergency Room. The patient was counseled regarding Diagnosis,Lab results, Imaging studies, need for follow up and when to return to the Emergency Room. Prescriptions given: Discharge Note I have spoken with the patient and/or caregivers. I have explained the patient's condition, diagnosis and treatment plan based on the information available to me at this time. I have answered the patient's and/or caregiver's questions and addressed any concerns. The patient and/or caregivers have as good understanding of the patient's diagnosis, condition and treatment plan as can be expected at this point. The vital signs have been stable. The patient's condition is stable and appropriate for discharge from the emergency department. The patient will pursue further outpatient evaluation with the primary care physician or other designated or consulting physician as outlined in the discharge instructions. The patient and/or caregivers are agreeable to this plan of care and follow-up instructions have been explained in detail. The patient and/or caregivers have received these instruction. The patient/and or caregivers are aware that any significant change in condition or worsening of symptoms should prompt an immediate return to this or the closest emergency department or call 911. Prescriptions: Amox Tr/Potass Clav. 875 mg [Augmentin 875-125 Tablet] 875 mg PO BID 7 Days #14 tablet
--- NOTE | 2024-06-22 16:27 | XRAY ---
Indication: Pain following injury. Comparison: None 3 view right wrist demonstrates osteopenia and mild 1st metacarpal multangular degenerative changes. Query old distal ulna shaft fracture. No other bony, articular, or soft tissue abnormalities.
[2024-06-22 17:01] VITALS: BP 160/74; PULSE 88; RESP 18; O2SAT 94
== END 2024-06-22 17:08 | disposition home or self-care (01) ==
LOC: ED 15:31
DX: S61.531A Puncture wound without foreign body of right wrist, initial encounter (principal); W61.32XA Struck by chicken, initial encounter; Y93.K9 Activity, other involving animal care; E78.5 Hyperlipidemia, unspecified; I11.0 Hypertensive heart disease with heart failure; I50.9 Heart failure, unspecified; Z79.84 Long term (current) use of oral hypoglycemic drugs; Z79.899 Other long term (current) drug therapy; Z72.0 Tobacco use; Z23 Encounter for immunization
CPT/HCPCS: 73110; 90471; 90715; 99283; A9270-GY

== ENCOUNTER 2025-03-03 22:09 | Emergency (ER) | payer OTHER ==
[2025-03-03 22:27] VITALS: TEMP 97.7
[2025-03-03] MEDS ORDERED: LOPRESSOR INJECTION IV ONE (22:32)
[2025-03-03] MEDS: LOPRESSOR INJECTION IV ONE (22:33)
--- NOTE | 2025-03-03 22:34 | ERPHSYRPT ---
- History of Present Illness Time Seen by Provider: 03/03/25 22:31 Source: patient Exam Limitations: no limitations Patient Subjective Stated Complaint: "The last couple of days I have had a cold. This morning I woke up not feeling right and realize my heart rate was up and wanted to see if it would go down onits own. my brething got worse as the night went on too." Triage Nursing Assessment: Patient arrives at the ED in personal vehicle with c/o chest pain and shortnes of breath. Pt ambulates and transfers per self. Has a cardiac history of Afib and mitral valve replacement. RR 22, slightly labored breathing with 02 94% on room air. hypertensive 149/120. Wheezing heard in upper lobes, clear lower álvarez. Skin P/W/D. Physician History: Patient comes to the emergency room due to palpitations congestion dry cough generalized fatigue going on for the past 2 days states that over the past couple hours the patient was having some palpitations so came to the ER to get evaluated denies any chest pain. Patient states that she was around her grandkids who was sick with a viral illness and believes she got it from her grandkid. Timing/Duration: today Allergies/Adverse Reactions: morphine Allergy (Verified 12/23/21 23:31) Home Medications: Albuterol Sulfate [Proair Respiclick] 2 puffs IH Q6H 12/23/21 [History] Atorvastatin Calcium 40 mg PO QHS 12/23/21 [History] Gabapentin 100 mg PO TID 12/23/21 [History] Metoprolol Tartrate 50 mg [Lopressor 50 MG] 100 mg PO BID 12/23/21 [History] Progesterone, Micronized [Progesterone] 100 mg PO QHS 12/23/21 [History] Quetiapine Fumarate [Seroquel] 25 mg PO BID 12/24/21 [History] Trazodone HCl 50 mg [Desyrel 50 mg] 50 mg PO QHS 12/24/21 [History] Buprenorphine HCl/Naloxone HCl [Buprenorphin-Naloxon 8-2 mg Sl] 1 each SL BID 03/24/23 [History] Losartan Potassium 100 mg PO DAILY 03/24/23 [History] Potassium Chloride [Klor-Con 10] 20 meq PO DAILY 03/24/23 [History] Pregabalin 150 mg PO BID 03/24/23 [History] Cholecalciferol (Vitamin D3) [Vitamin D] 1,000 unit PO DAILY 07/03/23 [History] Furosemide [Lasix] 20 mg PO DAILY 07/03/23 [History] Fluticasone/Umeclidin/Vilanter [Trelegy Ellipta 200-62.5-25] 1 each IH DAILY 07/30/23 [History] Melatonin 5 mg PO HS 09/30/23 [History] Pantoprazole 20 mg [Protonix 20MG Tablet] 20 mg PO DAILY 09/30/23 [History] Metformin HCl [Metformin HCl ER] 500 mg PO DAILY 02/04/24 [History] Hx Tetanus, Diphtheria Vaccination/Date Given: Yes Hx Influenza Vaccination/Date Given: No Hx Pneumococcal Vaccination/Date Given: No Immunizations Up to Date: Yes Travel Risk - International Travel Have you traveled outside of the country in past 3 weeks: No - Emerging Infectious Disease Are you exhibiting symptoms associated with any current EIDs: No Symptoms: Cough: New Onset - Review of Systems Constitutional: Fatigue Eyes: No Symptoms Ears, Nose, & Throat: Nose Congestion Respiratory: Cough Cardiac: Palpitations, No Chest Pain Abdominal/Gastrointestinal: No Abdominal Pain, No Nausea, No Vomiting, No Diarrhea Neurological: No Dizziness, No Focal Weakness, No Sensory Changes - Past Medical History Pertinent Past Medical History: Yes Neurological History: No Pertinent History ENT History: No Pertinent History Cardiac History: Congestive Heart Failure, High Cholesterol, Hypertension Respiratory History: Bronchitis, COPD Endocrine Medical History: No Pertinent History Musculoskeletal History: No Pertinent History GI Medical History: Other History: No Pertinent History Psycho-Social History: No Pertinent History Female Reproductive Disorders: No Pertinent History Other Medical History: celiac disease - Past Surgical History Past Surgical History: Yes Neuro Surgical History: No Pertinent History Cardiac: Cardiac Catheterization, Valve Replacement, Vascular Surgery Respiratory: No Pertinent History Gastrointestinal: Cholecystectomy Genitourinary: No Pertinent History Musculoskeletal: No Pertinent History Female Surgical History: No Pertinent History Other Surgical History: cardiac ablation, mitral valve replacement- mechanical - Social History Smoking Status: Never smoker Exposure to second hand smoke: No Drug Use: none - Social Determinants of Health Will the patient participate in the screening: Declined to provide - Nursing Vital Signs Nursing Vital Signs: Initial Vital Signs Pulse Rate 127 H 03/03/25 22:11 Respiratory Rate 27 H 03/03/25 22:11 O2 Sat by Pulse Oximetry 95 03/03/25 22:11 Pain Scale Pain Intensity 0 - Physical Exam General Appearance: no apparent distress Eye Exam: PERRL/EOMI, eyes nml inspection Ears, Nose, Throat Exam: normal ENT inspection, TMs normal, pharynx normal, moist mucous membranes Neck Exam: normal inspection, non-tender, supple, full range of motion Respiratory Exam: normal breath sounds, lungs clear, No respiratory distress Cardiovascular Exam: tachycardia Gastrointestinal/Abdomen Exam: soft Neurologic Exam: alert, oriented x 3 SpO2 Interpretation: normal SpO2: 94 O2 Delivery: Room Air - Course EKG Interpreted by Me: Danisha Rhythm Strip: Atrial Fibrillation - Radiology Exams Chest X-ray Interpretation: Negative Ordered Tests: Active Orders 24 hr Category Date Time Status CHEST 1 VIEW (PORTABLE) Stat Exams 03/03/25 22:51 Taken BMP Stat Lab 03/03/25 22:25 Completed CBC W DIFF Stat Lab 03/03/25 22:25 Completed TROPONIN Q4H Lab 03/03/25 22:25 Completed Medication Summary Discontinued Medications Generic Name Dose Route Start Last Admin Trade Name Freq PRN Reason Stop Dose Admin Diltiazem HCl 15 mg 03/03/25 23:11 03/03/25 23:14 Diltiazem Hcl Iv 5 Mg/Ml Vial IV 03/03/25 23:12 15 mg STAT ONE Administration Diltiazem HCl Confirm 03/03/25 23:12 Diltiazem Hcl Iv 5 Mg/Ml Vial Administered 03/03/25 23:13 Dose 50 mg IV .STK-MED ONE Metoprolol Tartrate 5 mg 03/03/25 22:29 03/03/25 22:33 Metoprolol Tartrate 5 Mg/5 Ml Vial IV 03/03/25 22:30 5 mg STAT ONE Administration Metoprolol Tartrate Confirm 03/03/25 22:32 Metoprolol Tartrate 5 Mg/5 Ml Vial Administered 03/03/25 22:33 Dose 5 mg IV .STK-MED ONE Lab/Rad Data: Laboratory Result Diagrams 03/03/25 22:25 03/03/25 22:25 Laboratory Results 03/03/25 03/03/25 03/03/25 Range/Units 22:55 22:25 22:25 WBC (3.98-10.04) x10^3/uL RBC (3.93-5.22) x10^6/uL Hgb (11.2-15.7) g/dL Hct (34.1-44.9) % MCV (79.4-94.8) fL MCH (25.6-32.2) pg MCHC (32.2-35.5) g/dL RDW (11.7-14.4) % Plt Count (182-369) x10^3/uL MPV (9.4-12.3) fL Gran % (34.0-71.1) % Immature Gran % (Auto) (0.001-0.429) % Nucleat RBC Rel Count (0.00-0.2) % Eos # (Auto) (0.04-0.36) x10^3/uL Immature Gran # (Auto) (0.001-0.031) x10^3u/L Absolute Lymphs (auto) (1.18-3.74) x10^3/uL Absolute Monos (auto) (0.24-0.86) x10^3/uL Absolute Nucleated RBC (0.00-0.012) x10^3u/L Lymphocytes % (19.3-51.7) % Monocytes % (4.7-12.5) % Eosinophils % (0.7-5.8) % Basophils % (0.1-1.2) % Absolute Granulocytes (1.56-6.13) x10^3/uL Basophils # (0.01-0.08) x10^3/uL Sodium 139 (135-145) mmol/L Potassium 3.9 (3.5-5.1) mmol/L Chloride 100 (98-107) mmol/L Carbon Dioxide 28 (22-30) mmol/L Anion Gap 15.1 H (5-15) MEQ/L BUN 7 (7-17) mg/dL Creatinine 0.79 (0.52-1.04) mg/dL Estimated GFR 87.7 ML/MIN Glucose 223 H (74-106) mg/dL Calcium 9.5 (8.4-10.2) mg/dL Troponin I < 0.012 (0.000-0.033) ng/mL Influenza Type A Ag NEGATIVE (NEGATIVE) Influenza Type B Ag NEGATIVE (NEGATIVE) RSV (PCR) NEGATIVE (NEGATIVE) SARS-CoV-2 (PCR) NEGATIVE (NEGATIVE) 03/03/25 Range/Units 22:25 WBC 11.5 H (3.98-10.04) x10^3/uL RBC 5.41 H (3.93-5.22) x10^6/uL Hgb 15.4 (11.2-15.7) g/dL Hct 48.3 H (34.1-44.9) % MCV 89.3 (79.4-94.8) fL MCH 28.5 (25.6-32.2) pg MCHC 31.9 L (32.2-35.5) g/dL RDW 14.1 (11.7-14.4) % Plt Count 187 (182-369) x10^3/uL MPV 10.6 (9.4-12.3) fL Gran % 81.1 H (34.0-71.1) % Immature Gran % (Auto) 0.4 (0.001-0.429) % Nucleat RBC Rel Count 0.0 (0.00-0.2) % Eos # (Auto) 0.08 (0.04-0.36) x10^3/uL Immature Gran # (Auto) 0.05 H (0.001-0.031) x10^3u/L Absolute Lymphs (auto) 1.49 (1.18-3.74) x10^3/uL Absolute Monos (auto) 0.52 (0.24-0.86) x10^3/uL Absolute Nucleated RBC 0.00 (0.00-0.012) x10^3u/L Lymphocytes % 13.0 L (19.3-51.7) % Monocytes % 4.5 L (4.7-12.5) % Eosinophils % 0.7 (0.7-5.8) % Basophils % 0.3 (0.1-1.2) % Absolute Granulocytes 9.28 H (1.56-6.13) x10^3/uL Basophils # 0.04 (0.01-0.08) x10^3/uL Sodium (135-145) mmol/L Potassium (3.5-5.1) mmol/L Chloride (98-107) mmol/L Carbon Dioxide (22-30) mmol/L Anion Gap (5-15) MEQ/L BUN (7-17) mg/dL Creatinine (0.52-1.04) mg/dL Estimated GFR ML/MIN Glucose (74-106) mg/dL Calcium (8.4-10.2) mg/dL Troponin I (0.000-0.033) ng/mL Influenza Type A Ag (NEGATIVE) Influenza Type B Ag (NEGATIVE) RSV (PCR) (NEGATIVE) SARS-CoV-2 (PCR) (NEGATIVE) - Progress Progress: improved Progress Note: 03/03/25 23:44 Patient came in with upper respiratory symptoms complaining of cough congestion and and palpitations. Patient denies any chest pain denies any fever chills. States that she came into contact with granddaughter who was having the symptoms and believes she got what ever the granddaughter had. The patient's EKG showed atrial fibrillation patient was given metoprolol as this patient normally takes 1 dose was given but there was no change after that patient was given 15 mg of Cardizem IV x 1 which converted her and now patient's stable and blood pressure and heart rate within acceptable range patient is on metoprolol daily and on Coumadin. Patient to be discharged advised to follow-up with primary care for further evaluation and management. - Departure Departure Disposition: Home Clinical Impression: Atrial fibrillation with RVR, Viral URI Condition: Good Critical Care Time: No [facility]errals: [facility] [Primary Care Provider, UNKNOWN] - Follow up/PCP as directed Instructions: Atrial fibrillation, Upper respiratory infection in adults - ED discharge instructions
[2025-03-03 22:35] LABS: BASOPHIL % 0.3 % (0.1-1.2); Basophil (Absolute #) 0.04 x10^3/uL (0.01-0.08); Eosinophil (Absolute #) 0.08 x10^3/uL (0.04-0.36); Hematocrit 48.3 % (34.1-44.9); Hemoglobin 15.4 g/dL (11.2-15.7); IMMATURE GRAN # 0.05 x10^3u/L (0.001-0.031); IMMATURE GRAN % 0.4 % (0.001-0.429); Lymphocyte (Absolute #) 1.49 x10^3/uL (1.18-3.74); Mean Corpuscular Hemoglobin 28.5 pg (25.6-32.2); Mean Corpuscular Hgb Concent. 31.9 g/dL (32.2-35.5); Monocyte (Absolute #) 0.52 x10^3/uL (0.24-0.86); NUCLEATED RBC # 0.00 x10^3u/L (0.00-0.012); NUCLEATED RBC % 0.0 % (0.00-0.2); Platelet Count 187 x10^3/uL (182-369); Red Blood Count 5.41 x10^6/uL (3.93-5.22); White Blood Count 11.5 x10^3/uL (3.98-10.04)
[2025-03-03 22:40] LABS: Calcium 9.5 mg/dL (8.4-10.2); Carbon Dioxide 28.0 mmol/L (22-30); Creatinine 1 0.79 mg/dL (0.52-1.04); EST GLOMERULAR FILTRATION RATE 87.7 ML/MIN; Glucose 223.0 mg/dL (74-106); Potassium 3.9 mmol/L (3.5-5.1)
[2025-03-03] MEDS ORDERED: Cardizem IV 50 MG/10 ML IV ONE (23:12)
[2025-03-03] MEDS: Cardizem IV 50 MG/10 ML IV ONE (23:14)
[2025-03-03 23:37] LABS: INFLUENZA A NEGATIVE (NEGATIVE); INFLUENZA B NEGATIVE (NEGATIVE); RESPIRATORY SYNCTIAL VIRUS NEGATIVE (NEGATIVE); SARS-CoV-2 Xpert Express NEGATIVE (NEGATIVE)
[2025-03-03 23:48] VITALS: O2SAT 94
[2025-03-03 23:58] VITALS: PULSE 95
[2025-03-04 00:04] VITALS: BP 115/83; RESP 22
--- NOTE | 2025-03-04 08:53 | XRAY ---
Indication: Cough. Comparison: September 30, 2023 Portable chest again demonstrates cardiomegaly with mitral valve replacement. Lungs again demonstrates mild pulmonary edema without consolidation/large effusion. Bony thorax intact again with osteopenia and degenerative changes. No new cardiopulmonary abnormalities.
== END 2025-03-04 00:05 | disposition home or self-care (01) ==
LOC: ED 22:09
DX: I48.20 Chronic atrial fibrillation, unspecified (principal); J06.9 Acute upper respiratory infection, unspecified; R05.1 Acute cough; R53.83 Other fatigue; I11.0 Hypertensive heart disease with heart failure; I50.9 Heart failure, unspecified; Z79.84 Long term (current) use of oral hypoglycemic drugs; Z79.899 Other long term (current) drug therapy